=== PATIENT | male | born 1940 | race Caucasian/White ===

== ENCOUNTER 2017-11-03 11:51 | Day surgery (SDC) | payer MEDICARE ==
[~2017-11-03] VITALS: Ht 177.8 cm; Wt 102.5 kg
[~2017-11-03 11:51] MED LIST: (None)20 M1 PO; ALBU90OI INH; AMLO10 PO; ATOR10 PO; AZIT250 PO; Actigall300 MG PO; Aspir 8181 MG PO; BUDE6HFA INH; CENTRUM SILVER1 EAC2 PO; CETI5 PO; CLON.1 PO; COLCHICINE0.6 MG PO; ELIQUIS5 MG PO; ENAL20 PO; ERGO400 PO; FINA5 PO; Flomax0.4 MG PO; HYDCHL25; HYDCHL25 PO; HYDR1TAB94 PO; Keflex500 MG PO; LOSA25 PO; LOVA40 PO; METO25ER PO; OXYACE5T PO; Omega 3 1,0001 EACH PO; Omeprazole20 M1 PO; PRAMIPEXOLE0.125 MG PO; PRED20 PO; Percocet 5-3251 EACH PO; ZOLP10 PO; ZYRTEC10 M1 PO
[2017-11-04 05:18] LABS: BASOPHILS ABSOLUTE AUTO 0.01 K/mm3 (0.00-0.23); BASOPHILS PERCENT AUTO 0 % (0-2); EOSINOPHILS PERCENT AUTO 0 % (0-6); Hematocrit 29.3 % (37.0-53.0); Hemoglobin 9.4 g/dL (13.5-17.5); IMMATURE GRAN ABSOLUTE AUTO 0.06 K/mm3 (0.00-0.10); IMMATURE GRAN PERCENT AUTO 1 % (0-1); LYMPHOCYTES ABSOLUTE AUTO 0.45 K/mm3 (0.84-5.20); LYMPHOCYTES PERCENT AUTO 4 % (21-46); MONOCYTES ABSOLUTE AUTO 0.18 K/mm3 (0.16-1.47); MONOCYTES PERCENT AUTO 2 % (4-13); Mean Corpuscular HGB 29.7 pg (26.0-34.0); Mean Corpuscular HGB Conc 32.1 g/dL (31.5-36.5); Mean Corpuscular Volume 92 fL (80-100); Mean Platelet Volume 9.8 fL (9.1-12.4); NEUTROPHILS ABSOLUTE AUTO 10.47 K/mm3 (1.96-9.15); NEUTROPHILS PERCENT AUTO 94 % (41-73); Platelet Count 217 K/mm3 (150-400); RDW Coefficient Variation 15.2 % (11.7-14.2); RDW Standard Deviation 51.7 fL (35.1-46.3); Red Blood Cell Count 3.17 M/mm3 (4.30-5.90); White Blood Cell Count 11.17 K/mm3 (4.00-11.30)
[2017-11-04 05:37] LABS: Bun/Creatinine Ratio 18.1 (12.0-20.0); Calcium, Blood 8.2 mg/dL (8.5-10.1); Creatinine, Blood 2.27 mg/dL (0.60-1.20); Potassium, Blood 5.5 mmol/L (3.5-5.5)
[2017-11-04] MEDS ORDERED: Percocet 5-3251 EACH PO (16:39)
== END 2017-11-04 17:00 | disposition home or self-care (01) ==
LOC: SURS 11:51 → PRE IP 11:51 → ORSCMMR 11:51 → SURS 11:51 → PRE IP 13:30 → EDSTATUS 13:30 → SURS 18:01 → ORSCMMR 11-04 17:00 → SURS 11-04 17:00
PROVIDERS: Orthopaedic Surgery
PROC: 0SRC0JA Replacement of Right Knee Joint with Synthetic Substitute, Uncemented, Open Approach (ICD-10-PCS; principal; 2017-11-03 13:30)
DX: M17.11 Unilateral primary osteoarthritis, right knee (principal); N18.2 Chronic kidney disease, stage 2 (mild); I10 Essential (primary) hypertension; I48.0 Paroxysmal atrial fibrillation; E78.5 Hyperlipidemia, unspecified; G47.33 Obstructive sleep apnea (adult) (pediatric); Z87.891 Personal history of nicotine dependence; Z79.899 Other long term (current) drug therapy
CPT/HCPCS: 36415; 73560-RT; 80048; 85025; 86850; 86900; 86901; 88300; 94762; 97110; 97116; 97161; C1776; G8978; G8979; G8980; J0171; J0690; J0735; J1170; J1885; J2250; J2270; J2795; J3010; J7120

== ENCOUNTER 2018-04-06 14:28 | Emergency (ER) | payer MEDICARE ==
[~2018-04-06] VITALS: Ht 177.8 cm; Wt 99.8 kg
[2018-04-06] MEDS ORDERED: Polytrim Eye Dr10 ML LEFTEYE (16:13)
== END 2018-04-06 16:15 | disposition home or self-care (01) ==
LOC: ER 14:28
DX: H00.024 Hordeolum internum left upper eyelid (principal); Z88.8 Allergy status to other drugs, medicaments and biological substances; Z79.899 Other long term (current) drug therapy; I10 Essential (primary) hypertension; E78.00 Pure hypercholesterolemia, unspecified; Z87.891 Personal history of nicotine dependence
CPT/HCPCS: 99282

== ENCOUNTER 2018-05-25 10:46 | Day surgery (SDC) | payer MEDICARE ==
[~2018-05-25] VITALS: Ht 177.8 cm; Wt 100.0 kg
[~2018-05-25 10:46] MED LIST changes: +Polytrim Eye Dr10 ML LEFTEYE
== END 2018-05-25 12:31 | disposition home or self-care (01) ==
LOC: ORSCSDS 10:46
PROVIDERS: Internal Medicine Gastroenterology
PROC: 0DJ08ZZ Inspection of Upper Intestinal Tract, Via Natural or Artificial Opening Endoscopic (ICD-10-PCS; principal; 2018-05-25 12:00)
DX: K22.70 Barrett's esophagus without dysplasia (principal); K44.9 Diaphragmatic hernia without obstruction or gangrene; K75.81 Nonalcoholic steatohepatitis (NASH); G47.33 Obstructive sleep apnea (adult) (pediatric); N18.2 Chronic kidney disease, stage 2 (mild); Z87.891 Personal history of nicotine dependence
CPT/HCPCS: J7120

== ENCOUNTER 2018-11-23 07:23 | Day surgery (SDC) | payer MEDICARE ==
--- NOTE | 2018-11-23 09:58 | NUR ---
PT LAYING ON RT SIDE. BANDAID CDI ON RT SIDE. NO FAMILY WITH PT. VSS. PT WILL GO FOR SECOND US OF LIVER AT 1000. PT IS COMFORTABLE WITH NO COMPLAINTS.
--- NOTE | 2018-11-23 10:14 | NUR ---
PT REQUESTED CHESSE, CRACKERS AND PEPSI. SNACK GIVEN TO PT
--- NOTE | 2018-11-23 10:50 | NUR ---
REPORT GIVEN TO KRISHNA OSEGUERA. SHE WILL ASSUME CARE OF PT AT THIS TIME.
--- NOTE | 2018-11-23 11:34 | NUR ---
PT REPORT FROM MONALISA OSEGUERA. PT US OF LIVER COMPLETED AT BEDSIDE. PATIENT TOLERATED WELL. SHAWN PEREYRA FROM RADIOLGY GAVE VERBAL ORDERS TO SEND PATIENT HOME. DISCHARGE ORDERS COMPLETED. PT VERBALIZES UNDERSTANDING OF WHEN TO RESTART ELIQUIS. VS REMAINED STABLE AND THEIR WHERE NO COMPLAINTS OF PAIN THROUGHOUT RECOVERY. ALL BELONINGS RETURNED TO PATIENT.
== END 2018-11-23 22:38 | disposition home or self-care (01) ==
LOC: US 07:23
DX: K74.69 Other cirrhosis of liver (principal); R76.0 Raised antibody titer; N28.1 Cyst of kidney, acquired; Z90.49 Acquired absence of other specified parts of digestive tract; I25.10 Atherosclerotic heart disease of native coronary artery without angina pectoris; I48.0 Paroxysmal atrial fibrillation; Z79.01 Long term (current) use of anticoagulants; Z79.899 Other long term (current) drug therapy; N18.2 Chronic kidney disease, stage 2 (mild); G47.30 Sleep apnea, unspecified; Z87.891 Personal history of nicotine dependence
CPT/HCPCS: 47000; 76705; 76942; 88307; 88313

== ENCOUNTER → 2019-06-05 | Outpatient (CLI) | payer MEDICARE ==
[2019-06-05 12:28] LABS: BASOPHILS ABSOLUTE AUTO 0.05 K/mm3 (0.00-0.23); BASOPHILS PERCENT AUTO 1 % (0-2); EOSINOPHILS ABSOLUTE AUTO 0.21 K/mm3 (0.00-0.68); EOSINOPHILS PERCENT AUTO 2 % (0-6); Hematocrit 35.4 % (37.0-53.0); Hemoglobin 11.8 g/dL (13.5-17.5); IMMATURE GRAN ABSOLUTE AUTO 0.08 K/mm3 (0.00-0.10); IMMATURE GRAN PERCENT AUTO 1 % (0-1); LYMPHOCYTES ABSOLUTE AUTO 1.05 K/mm3 (0.84-5.20); LYMPHOCYTES PERCENT AUTO 10 % (21-46); MONOCYTES ABSOLUTE AUTO 0.81 K/mm3 (0.16-1.47); MONOCYTES PERCENT AUTO 8 % (4-13); Mean Corpuscular HGB 30.1 pg (26.0-34.0); Mean Corpuscular HGB Conc 33.3 g/dL (31.5-36.5); Mean Corpuscular Volume 90 fL (80-100); Mean Platelet Volume 9.3 fL (9.1-12.4); NEUTROPHILS ABSOLUTE AUTO 8.14 K/mm3 (1.96-9.15); NEUTROPHILS PERCENT AUTO 79 % (41-73); Platelet Count 297 K/mm3 (150-400); RDW Coefficient Variation 14.5 % (11.7-14.2); RDW Standard Deviation 47.4 fL (35.1-46.3); Red Blood Cell Count 3.92 M/mm3 (4.30-5.90); White Blood Cell Count 10.34 K/mm3 (4.00-11.30)
[2019-06-05 12:48] LABS: Alanine Aminotransfer (ALT/SGP 35 U/L (12-78); Albumin, Blood 3.6 g/dL (3.4-5.0); Albumin/Globulin Ratio 0.9 (0.8-1.8); Alk Phos 129 U/L (40-126); Anion Gap 12 mmol/L (6-16); Aspartate Aminotrans (AST/SGOT 30 U/L (12-37); Bilirubin, Total 0.4 mg/dL (0.1-1.0); Blood Urea Nitrogen 35 mg/dL (8-24); Bun/Creatinine Ratio 19.1 (12.0-20.0); CO2, Blood 24 mmol/L (21-32); Calcium, Blood 9.2 mg/dL (8.5-10.1); Chloride, Blood 95 mmol/L (98-108); Creatinine, Blood 1.83 mg/dL (0.60-1.20); Globulin, Blood 4.1 g/dL (2.2-4.0); Glomerular Filtration Rate 36 (60-); Glucose, Blood 108 mg/dL (70-99); Potassium, Blood 4.1 mmol/L (3.5-5.5); Sodium, Blood 131 mmol/L (136-145); Thyroid Stimulating Hormone 2.313 uIU/mL (0.360-4.800); Total Protein, Blood 7.7 g/dL (6.4-8.2)
[2019-06-05 12:49] LABS: Troponin I <0.017 ng/mL (0.000-0.040)
== END | disposition home or self-care (01) ==
LOC: LAB EV 12:24 → LAB SHORT 12:24
PROVIDERS: General Practice
DX: R22.43 Localized swelling, mass and lump, lower limb, bilateral (principal); R53.81 Other malaise
CPT/HCPCS: 80053; 83880; 84443; 84484; 85025; 85379

== ENCOUNTER → 2019-07-28 | Outpatient (CLI) | payer MEDICARE | END | disposition home or self-care (01) | LOC: PLD 08:05 → LAB SHORT 08:05 | DX: B35.1 Tinea unguium (principal) | CPT/HCPCS: 88305; 88312 ==

== ENCOUNTER 2019-08-30 13:16 | Emergency (ER) | payer MEDICARE ==
[~2019-08-30] VITALS: Ht 177.8 cm; Wt 99.8 kg
[2019-08-30 14:00] LABS: Source, Urine Clean Catch
[2019-08-30 14:15] LABS: Bilirubin, Urine Neg (Neg); Blood, Urine Neg (Neg); Glucose Qualitative, Urine Neg (Neg); Ketones, Urine Neg (Neg); Leukocyte Esterase, Urine Neg (Neg); Nitrite, Urine Neg (Neg); Protein, Urine Neg (Neg); Urobilinogen, Urine NORM (Normal)
[2019-08-30 15:03] LABS: Appearance, Urine Clear (Clear); Color, Urine Yellow (P-Yellow)
[2019-08-30] MEDS ORDERED: Roxicodone5 MG PO (15:48)
[2019-08-30] MEDS ORDERED: METPRE4DP PO (15:48)
== END 2019-08-30 16:05 | disposition home or self-care (01) ==
LOC: ER 13:16
PROVIDERS: Physician Assistant
DX: S39.011A Strain of muscle, fascia and tendon of abdomen, initial encounter (principal); I10 Essential (primary) hypertension; E78.00 Pure hypercholesterolemia, unspecified; Z87.891 Personal history of nicotine dependence; Z88.8 Allergy status to other drugs, medicaments and biological substances; Z79.899 Other long term (current) drug therapy; Z79.01 Long term (current) use of anticoagulants; X50.0XXA Overexertion from strenuous movement or load, initial encounter
CPT/HCPCS: 76857; 81003; 99284-25

== ENCOUNTER 2019-09-05 10:34 | Emergency (ER) | payer MEDICARE ==
[~2019-09-05] VITALS: Ht 177.8 cm; Wt 99.8 kg
[~2019-09-05 10:34] MED LIST changes: +METPRE4DP PO; +Roxicodone5 MG PO
[2019-09-05] MEDS ORDERED: METPRE4DP PO (11:16)
== END 2019-09-05 11:25 | disposition home or self-care (01) ==
LOC: ER 10:34
DX: S39.011A Strain of muscle, fascia and tendon of abdomen, initial encounter (principal); X58.XXXA Exposure to other specified factors, initial encounter; Z88.8 Allergy status to other drugs, medicaments and biological substances; Z79.899 Other long term (current) drug therapy; Z79.52 Long term (current) use of systemic steroids; I12.9 Hypertensive chronic kidney disease with stage 1 through stage 4 chronic kidney disease, or unspecified chronic kidney disease; N18.9 Chronic kidney disease, unspecified; K21.9 Gastro-esophageal reflux disease without esophagitis
CPT/HCPCS: 99283

== ENCOUNTER 2019-12-20 02:00 | Inpatient (IN) | payer MEDICARE ==
[~2019-12-20] VITALS: Ht 177.8 cm; Wt 105.6 kg
[2019-12-20 04:49] LABS: Alanine Aminotransfer (ALT/SGP 38 U/L (12-78); Albumin, Blood 3.6 g/dL (3.4-5.0); Alk Phos 127 U/L (50-136); Anion Gap 7 mmol/L (6-16); Aspartate Aminotrans (AST/SGOT 35 U/L (12-37); Bilirubin, Total 0.2 mg/dL (0.1-1.0); Blood Urea Nitrogen 34 mg/dL (8-24); Bun/Creatinine Ratio 19.8 (12.0-20.0); CO2, Blood 25 mmol/L (21-32); Calcium, Blood 8.9 mg/dL (8.5-10.1); Chloride, Blood 103 mmol/L (98-108); Creatinine, Blood 1.72 mg/dL (0.60-1.20); Globulin, Blood 3.6 g/dL (2.2-4.0); Glomerular Filtration Rate 39 (60-); Glucose, Blood 111 mg/dL (70-99); Potassium, Blood 4.5 mmol/L (3.5-5.5); Sodium, Blood 135 mmol/L (136-145); Total Protein, Blood 7.2 g/dL (6.4-8.2); Troponin I <0.015 ng/mL (0.000-0.040)
--- NOTE | 2019-12-20 04:53 | NUR ---
ADMIT NOTE ADMIT 79 YEAR OLD MALE TO ICU 19 PCU STATUS PER HOSPITALIST DR EMERY PER [facility] VIA ER. MONITOR INTACT SHOWING SINUS RHYTHM HEART RATE 80'S DENIES DISCOMFORT. LUNG SOUNDS COARSE DECRESED WITH OCC NONPRODUCTIVE COUGH. SPO2 ON BIPAP 12/6 WITH FIO2 AT 30%. RATE 18-26. ABDOMEN SOFT WITH BOWEL SOUNDS FOUR QUADS. VOIDS ALTAGRACIA URINE PER URINAL . OCONTINUE TO MONITOR AND REPORT CHANGE IN PATIENT CONDITION.
[2019-12-20 05:12] LABS: BASOPHILS ABSOLUTE AUTO 0.07 K/mm3 (0.00-0.23); BASOPHILS PERCENT AUTO 1 % (0-2); EOSINOPHILS ABSOLUTE AUTO 0.58 K/mm3 (0.00-0.68); EOSINOPHILS PERCENT AUTO 7 % (0-6); Hematocrit 36.3 % (37.0-53.0); Hemoglobin 12.1 g/dL (13.5-17.5); IMMATURE GRAN ABSOLUTE AUTO 0.07 K/mm3 (0.00-0.10); IMMATURE GRAN PERCENT AUTO 1 % (0-1); LYMPHOCYTES ABSOLUTE AUTO 1.08 K/mm3 (0.84-5.20); LYMPHOCYTES PERCENT AUTO 13 % (21-46); MONOCYTES ABSOLUTE AUTO 0.87 K/mm3 (0.16-1.47); MONOCYTES PERCENT AUTO 10 % (4-13); Mean Corpuscular HGB 30.7 pg (26.0-34.0); Mean Corpuscular HGB Conc 33.3 g/dL (31.5-36.5); Mean Corpuscular Volume 92 fL (80-100); Mean Platelet Volume 9.4 fL (9.1-12.4); NEUTROPHILS ABSOLUTE AUTO 5.86 K/mm3 (1.96-9.15); NEUTROPHILS PERCENT AUTO 69 % (41-73); Platelet Count 245 K/mm3 (150-400); RDW Standard Deviation 51.5 fL (35.1-46.3); Red Blood Cell Count 3.94 M/mm3 (4.30-5.90); White Blood Cell Count 8.53 K/mm3 (4.00-11.30)
--- NOTE | 2019-12-20 06:30 | NUR ---
RESTS QUIETLY WHEN UNDISTURBED. MONITOR INTACT SHOWING SINUS RHYTHM. HEART RATE 80'S DENIES DISCOMFORT BIPAP INTACT SETTINGS 12/6 FIO2 305 RATE 15-26 SPO2 95-98% LUNG SOUNDS COARSE UPPER LOBES WITH DECREASED SOUNDS IN THE BASES. ABDOMEN SOFT WITH BOWEL SOUNDS FOUR QUADS. VOIDS ALTAGRACIA URINE PER URINAL. CONTINUE TO MONITOR AND REPORT CHANGE IN PATIENT CONDITION. BILATERAL LOWER EXTREMITIY EDEMS 2+ AMPUTATED R 4TH TOE
[2019-12-20 06:43] LABS: Adenovirus Not Detected (NOT DETECT); Bordetella pertussis Not Detected (NOT DETECT); Chlamydophila pneumoniae Not Detected (NOT DETECT); Coronavirus 229E Not Detected (NOT DETECT); Coronavirus HKU1 Not Detected (NOT DETECT); Coronavirus NL63 Not Detected (NOT DETECT); Coronavirus OC43 Not Detected (NOT DETECT); Human Metapneumovirus Not Detected (NOT DETECT); Human Rhinovirus/Enterovirus Not Detected (NOT DETECT); Influenza A/2009-H1 Not Detected (NOT DETECT); Influenza A/H1 Not Detected (NOT DETECT); Influenza A/H3 Not Detected (NOT DETECT); Influenza B Not Detected (NOT DETECT); Mycoplasma pneumoniae Not Detected (NOT DETECT); Parainfluenza Virus 1 Not Detected (NOT DETECT); Parainfluenza Virus 2 Not Detected (NOT DETECT); Parainfluenza Virus 3 Not Detected (NOT DETECT); Parainfluenza Virus 4 Not Detected (NOT DETECT); Respiratory Syncytial Virus Not Detected (NOT DETECT)
--- NOTE | 2019-12-20 07:30 | NUR ---
PT RESTING IN BED, BIPAP IN PLACE 09/16 WITH 30% FIO2. ROUSES EASILY, SATS MID TO HIGH 90S ON THIS. DENIES NEEDS OR CONCERNS AT THIS TIME.
--- NOTE | 2019-12-20 09:00 | NUR ---
DISCUSSED ORDERED AND HOME MEDS WITH PT. PT DECLINED LISINOPRIL AND WANTED TO BRING ENALAPRIL IN. WROTE OUT LIST OF MEDS TO CALL TO BRING IN. ON 2L NE SATTING MID 90S AT THIS TIME. AWAITING MD TO DETERMINE DIET RECOMMENDATIONS. NO FURTHER NEEDS OR CONCERNS AT THSI TIME.
--- NOTE | 2019-12-20 11:51 | NUR ---
NOTED ON MONITOR THAT PT'S RESPIRATIONS WERE IN 70S. HEADED TO ROOM TO FIND CALL LIGHT ON. ENTERED ROOM AND PT WAS GASPING AND STATED HE FELT HE COULDN'T BREATH. BIPAP PLACED AT 12/6 WITH 45% FIO2 TO START. PT STATES NOTHING LED UP TO DYSPNEIC EPISODE, JUST SUDDEN SOB. IMPROVING AFTER BIPAP REPLACED WITH LUNG SOUNDS CLEAR AT THIS TIME. FIO2 BACK DOWN TO 30%. RR IN 20S AT THIS TIME.
--- NOTE | 2019-12-20 12:30 | NUR ---
TRANSFERRED CARE: REPORT GIVEN TO IGNACIA OSEGUERA. PT CURRENTLY ON BIPAP 09/16 WITH 30% FIO2. DENIES NEEDS OR CONCERNS AT THIS TIME.
--- NOTE | 2019-12-20 13:30 | NUR ---
Assumed care after getting report from Estela OSEGUERA. Patient takenb off BIPAP and set up for lunch and polaced on 2L O2 via NC and sast low 90s's with RR <20. Patient denies any current needs. VSS See EMR.
--- NOTE | 2019-12-20 18:00 | NUR ---
Patient has been off and on BIPAP by request. When his RR gets in the upper 20's he will call and request placed back on. BIPAP / at 30%. He tolerated 100% of dinner. He got up to bathroom and had med size formed BM. His brought home meds in and had pharmacy set up for scan. He has a different way that he takes his home meds and will have NOC shift to clarify with hospitalist. He is currentlu on 2L O2 via NC and is calm.
--- NOTE | 2019-12-20 19:15 | NUR ---
ASSUME CARE: BEDSIDE REPORT RECIEVED FROM IGNACIA OFF GOING RN. MONITOR INTACT SHOWING A FIB HEART RATE 90'S-100'S . LUNG SOUNDS COARSE UPPER LOBES WITH DECREASED SOUNDS IN THE BASES. RESPIRATIONS REGULAR AND EASY AT REST BECOMES TACHY WITH EXERTION. ALTERNATES BETWEEN BIPAP 12/6 FIO2 305 AND O2 PER NASAL CANNULA NEEDED. SPO2 94-98% ABDOMEN SOFT WITH BOWEL SOUNDS FOUR QUADS. VOIDS AMGER URINE. GAIT STEADY TO TOILET .. MINIMAL ASSIST CONTINUE TO MONITOR AND REPORT CHANGE IN PATIENT CONDITION VERBALIZES CONCERNS RE ORAL HOME MEDS AND DOSAGES ORDERED VS HIS HOME REGIUME. HOSPITALIST NOTIFIED ORDERS NOTED
[2019-12-21 03:39] LABS: BASOPHILS ABSOLUTE AUTO 0.01 K/mm3 (0.00-0.23); BASOPHILS PERCENT AUTO 0 % (0-2); EOSINOPHILS PERCENT AUTO 0 % (0-6); Hematocrit 34.4 % (37.0-53.0); Hemoglobin 11.6 g/dL (13.5-17.5); IMMATURE GRAN ABSOLUTE AUTO 0.06 K/mm3 (0.00-0.10); IMMATURE GRAN PERCENT AUTO 1 % (0-1); LYMPHOCYTES ABSOLUTE AUTO 0.59 K/mm3 (0.84-5.20); LYMPHOCYTES PERCENT AUTO 5 % (21-46); MONOCYTES ABSOLUTE AUTO 0.25 K/mm3 (0.16-1.47); MONOCYTES PERCENT AUTO 2 % (4-13); Mean Corpuscular HGB 30.7 pg (26.0-34.0); Mean Corpuscular HGB Conc 33.7 g/dL (31.5-36.5); Mean Corpuscular Volume 91 fL (80-100); Mean Platelet Volume 8.8 fL (9.1-12.4); NEUTROPHILS PERCENT AUTO 92 % (41-73); Platelet Count 221 K/mm3 (150-400); RDW Standard Deviation 50.2 fL (35.1-46.3); Red Blood Cell Count 3.78 M/mm3 (4.30-5.90); White Blood Cell Count 11.61 K/mm3 (4.00-11.30)
[2019-12-21 03:58] LABS: Bun/Creatinine Ratio 23.9 (12.0-20.0); Calcium, Blood 9.4 mg/dL (8.5-10.1); Creatinine, Blood 1.38 mg/dL (0.60-1.20); Potassium, Blood 4.3 mmol/L (3.5-5.5)
--- NOTE | 2019-12-21 08:18 | NUR ---
PROVIDER COMMUNICATION SPOKE WITH DR. LYMAN REGARDING CODE STATUS AND PT'S HOME MED, ALLOPURINOL, PER REQUESTED BY PATIENT. NEW ORDERS PLACED.
--- NOTE | 2019-12-21 08:19 | NUR ---
CARE ASSUMED REPORT RECEIVED, CARE ASSUMED AT 0700 FROM OUMAR RHODES. PT RESTING QUIETLY ON BIPAP, ALERT AND ORIENTED. REQUESTS TO TAKE BIPAP OFF, PLACED ON NASAL CANNULA. RR ELEVATED, PT REPORTS FEELING SHORT OF BREATH, BUT NO WORSE THAN THE PREVIOUS TWO WEEKS. PT TO SIDE OF BED FOR BREAKFAST AND TOLERATED WELL. PLAN FOR VQ STUDY TODAY, VERIFIED WITH RADIOLOGY THAT PT OK TO EAT PRIOR TO STUDY.
[2019-12-21] MEDS ORDERED: ENAL20 PO (09:22)
--- NOTE | 2019-12-21 09:35 | NUR ---
HOME MEDS WHILE EDUCATING PATIENT REGARDING MEDICATION ADMINISTRATION, IT WAS DISCOVERED THAT MEDICATIONS ARE DIFFERENT THAN HOME REGIME. ATTEMPTED TO REDO MED REC PRIOR TO CALLING PHYSICIAN AND PT NOT 100% SURE ON ALL OF HIS MEDICATIONS. PT CALLED WHO IS GOING TO PRINT HOME MED LIST FROM [employer] AND BRING IN FOR REVIEW.
--- NOTE | 2019-12-21 09:37 | NUR ---
CHEST PAIN PT NOTED TO HAVE FURROWED BROW AND BE MORE QUIET THAN EARLIER. PROMPTED PT REGARDING PAIN AND HE SAYS SINCE GETTING BACK TO BED AFTER BREAKFAST, "THE UPPER PART OF MY LUNGS ARE HURTING." PT POINTS TO STERNAL AREA. DESCRIBES PRESSURE/TIGHTNESS. REPORTS HE HAS HAD IT IN THE PAST, BUT INFREQUENTLY. PT PLACED BACK ON BIPAP. SPOKE WITH DR. WHITT. NEW ORDER FOR ATIVAN, EKG AND TROPONIN NOW.
--- NOTE | 2019-12-21 10:11 | NUR ---
CHEST PAIN VITALS STABLE. PT REPORTS CHEST PAIN WENT FROM 8/10 TO 5/10 AFTER GOING BACK ON BIPAP. REPORTS IT IMPROVING TO 1/10 AFTER ATIVAN WAS GIVEN. EKG COMPLETE. PENDING TROPONIN RESULTS.
--- NOTE | 2019-12-21 11:00 | NUR ---
MD ASSESSMENT DR. LYMAN TO BEDSIDE FOR ASSESSMENT. SEE PROVIDER NOTE.
--- NOTE | 2019-12-21 12:27 | NUR ---
PE STUDY PT OFF UNIT FOR PE RULE OUT STUDY. PT CONNECTED TO TELE BOX, CONFIRMED BY BRITTNEY MOLINAU SUPERVISOR [employer].
[2019-12-21] MEDS ORDERED: Allopurinol100 MG PO (13:24)
[2019-12-21] MEDS ORDERED: CYCL10 PO (13:25)
[2019-12-21] MEDS ORDERED: OMEP20ER PO (13:27)
[2019-12-21] MEDS ORDERED: LOVA40 PO (13:27)
--- NOTE | 2019-12-21 13:39 | NUR ---
MED REC MED REC UPDATED PER PATIENT'S LIST FROM HOME AND PT'S MEMORY. HE TAKES A FEW OF THE MEDICATIONS DIFFERENT THAN PRESCRIBED BUT PT SAYS HE HAS DISCUSSED WITH MD AND THE LIST JUST HASN'T BEEN UPDATED. SEE MED REC. DR. WHITT UPDATED AND PLANS TO PUT IN ORDERS WHEN SHE IS ABLE TO. FOR NOW, ORDER FOR URSODIOL UPDATED PER HOME REGIME.
--- NOTE | 2019-12-21 13:51 | NUR ---
TRANSFER NOTIFIED BY CHANDRA REID RN THAT PT TO BE TRANSFERRED TO PCU 2. PT UPDATED AND AGREEABLE. REPORT GIVEN TO OUMAR YARBROUGH IN PCU.
--- NOTE | 2019-12-21 14:26 | NUR ---
TRANSFER PT TRANSFERED TO PCU 2. VITALS STABLE. STAND AND TRANSFER FROM BED TO WHEELCHAIR BACK TO PCU BED. PT CONTINUES TO BE SHAKEY, BUT STEADY ON FEET. MANAGER RECRUITING VERIFIED BY JESSE U SHINGLE SHEARING MACHINE OPERATOR. PT PROVIDED WITH PHONE AND CALL LIGHT AND DECLINES FURTHER NEEDS. OUMAR YARBROUGH TO ASSUME CARE UPDATED.
--- NOTE | 2019-12-21 18:58 | NUR ---
SHIFT NOTEPT WAS TRANSFER FROM ICU WITH COPF EXACERBATION. PT A/O X3, PT DENIES SOB OR CP. PT EATING SNACKS TAT FAMILY HAS BROUGHT IN AT THE BEDSIDE. DENIES FURTHER NEEDS, USES CALL LIGHT APPROPRIATELY
--- NOTE | 2019-12-22 01:24 | NUR ---
VITALS FROM 1957 HRS I INCORRECTLY ENTERED THE RESPIRATORY RATE 14 BREATHS PER MINUTE. THE SYSTEM WILL NOT ALLOW ME TO CORRECT/EDIT THIS NUMBER. THE CORRECT BREATHS PER MINUTE AT 1958 HRS IS 21 BPM.
[2019-12-22 03:44] LABS: BASOPHILS ABSOLUTE AUTO 0.02 K/mm3 (0.00-0.23); BASOPHILS PERCENT AUTO 0 % (0-2); EOSINOPHILS PERCENT AUTO 0 % (0-6); Hematocrit 32.2 % (37.0-53.0); Hemoglobin 10.9 g/dL (13.5-17.5); IMMATURE GRAN ABSOLUTE AUTO 0.12 K/mm3 (0.00-0.10); IMMATURE GRAN PERCENT AUTO 1 % (0-1); LYMPHOCYTES ABSOLUTE AUTO 0.38 K/mm3 (0.84-5.20); LYMPHOCYTES PERCENT AUTO 3 % (21-46); MONOCYTES ABSOLUTE AUTO 0.53 K/mm3 (0.16-1.47); MONOCYTES PERCENT AUTO 4 % (4-13); Mean Corpuscular HGB 30.6 pg (26.0-34.0); Mean Corpuscular HGB Conc 33.9 g/dL (31.5-36.5); Mean Corpuscular Volume 90 fL (80-100); Mean Platelet Volume 9.2 fL (9.1-12.4); NEUTROPHILS ABSOLUTE AUTO 13.34 K/mm3 (1.96-9.15); NEUTROPHILS PERCENT AUTO 93 % (41-73); Platelet Count 226 K/mm3 (150-400); RDW Coefficient Variation 15.1 % (11.7-14.2); RDW Standard Deviation 50.3 fL (35.1-46.3); Red Blood Cell Count 3.56 M/mm3 (4.30-5.90); White Blood Cell Count 14.39 K/mm3 (4.00-11.30)
[2019-12-22 04:07] LABS: Calcium, Blood 8.9 mg/dL (8.5-10.1); Creatinine, Blood 1.55 mg/dL (0.60-1.20); Potassium, Blood 4.2 mmol/L (3.5-5.5)
--- NOTE | 2019-12-22 05:04 | NUR ---
SHIFT SUMMARY ADMITTED FOR COPD EXACERBATION. FULL CODE. USING A BIPAP AT NIGHT. REGULAR DIET, RA DURING DAY, HE HAS A BIPAP AT HOME. TELEMETRY SHOWS HIM TACHY 104-109 BPM. HE WAS TRANSFERED TO PCU FROM ICU YESTERDAY. HE DOES DESATURATE AT NIGHT WITHOUT THE BIPAP. HE IS HOPEFUL FOR DC TODAY. I NOTED DOWNTRENDING GFR. BUN IS TRENDING UP, IS CREATININE. HX: COPD, HTN, GERD, CKD, HYPERCHOLESTEROLEMIA,
--- NOTE | 2019-12-22 16:39 | NUR ---
PT TRANSFERED TO ROOM 308. REPORT CALLED OUMAR LOPEZ PRIOR TO MOVING ROOMS. PT AOX4 AND COOPERATIVE OF CARE. PT DID HAVE COUGH TODAY AND DR WHITT ADDED COUGH MEDICATION TO EMAR. PT IS AMBULATING WELL ON HIS OWN AND CALLS APPROPRIATELY. NO DISTRESS NOTED AT THIS TIME COUGH TREATED X 1 PER EMAR.
--- NOTE | 2019-12-22 16:45 | NUR ---
PT ARRIVED TO ROOM 308 FROM U 2, ORIENTED TO ROOM AND CALL SYSTEM. CALL TREJO IN REACH. PT DENIES WANTS/NEEDS AT THIS TIME. CALL TREJO IN REACH, WILL CONTINUE TO MONITOR
--- NOTE | 2019-12-22 18:39 | NUR ---
PT DENIES WANTS/NEEDS, PT ON RA DURING THE DAY AND BIPAP AT NIGHT. NO ACUTE CHANGES NOTED THIS SHIFT, WILL CONTINUE TO MONITOR AND REPORT TO ONCOMING RN
--- NOTE | 2019-12-22 22:07 | NUR ---
PATIENT RESTING IN BED WATCHING TV. ON ROOM AIR. REPORTS HE WILL PUT CPAP ON FOR SLEEP. CALL LIGHT IN REACH.
--- NOTE | 2019-12-23 03:03 | NUR ---
SHIFT SUMMARY PATIENT HAD NO ACUTE CHANGES OBSERVED. AXOX 4 AND SBA TO BR. ON ROOM AIR AND USES CPAP AT NIGHT. VSS/AFEBRILE. DENIES PAIN AND N/V. USES URINAL AT BEDSIDE. IV SOLU-MEDROL PER EMAR. RT IN FOR BREATHING TX. TESSALON 200 MG GIVEN FOR COUGH. PATIENT ABLE TO SLEEP. CALL LIGHT IN REACH. BED IN LOWEST POSITION. WILL CONTINUE TO MONITOR UNTIL DAY SHIFT NURSE ASSUMES CARE.
[2019-12-23 11:40] LABS: BASOPHILS ABSOLUTE AUTO 0.01 K/mm3 (0.00-0.23); BASOPHILS PERCENT AUTO 0 % (0-2); EOSINOPHILS PERCENT AUTO 0 % (0-6); Hematocrit 36.4 % (37.0-53.0); Hemoglobin 12.4 g/dL (13.5-17.5); IMMATURE GRAN ABSOLUTE AUTO 0.13 K/mm3 (0.00-0.10); IMMATURE GRAN PERCENT AUTO 1 % (0-1); LYMPHOCYTES ABSOLUTE AUTO 0.41 K/mm3 (0.84-5.20); LYMPHOCYTES PERCENT AUTO 3 % (21-46); MONOCYTES ABSOLUTE AUTO 0.58 K/mm3 (0.16-1.47); MONOCYTES PERCENT AUTO 5 % (4-13); Mean Corpuscular HGB 30.8 pg (26.0-34.0); Mean Corpuscular HGB Conc 34.1 g/dL (31.5-36.5); Mean Corpuscular Volume 91 fL (80-100); Mean Platelet Volume 9.1 fL (9.1-12.4); NEUTROPHILS ABSOLUTE AUTO 10.92 K/mm3 (1.96-9.15); NEUTROPHILS PERCENT AUTO 91 % (41-73); Platelet Count 262 K/mm3 (150-400); RDW Coefficient Variation 15.4 % (11.7-14.2); RDW Standard Deviation 50.7 fL (35.1-46.3); Red Blood Cell Count 4.02 M/mm3 (4.30-5.90); White Blood Cell Count 12.05 K/mm3 (4.00-11.30)
[2019-12-23 11:55] LABS: Albumin, Blood 3.2 g/dL (3.4-5.0); Anion Gap 8 mmol/L (6-16); Blood Urea Nitrogen 57 mg/dL (8-24); Bun/Creatinine Ratio 37.7 (12.0-20.0); CO2, Blood 25 mmol/L (21-32); Calcium, Blood 8.6 mg/dL (8.5-10.1); Chloride, Blood 96 mmol/L (98-108); Creatinine, Blood 1.51 mg/dL (0.60-1.20); Glomerular Filtration Rate 48 (60-); Glucose, Blood 152 mg/dL (70-99); Phosphorus, Blood 4.1 mg/dL (2.5-4.9); Potassium, Blood 4.2 mmol/L (3.5-5.5); Sodium, Blood 129 mmol/L (136-145)
--- NOTE | 2019-12-23 18:45 | NUR ---
SHIFT SUMMARY- PT ALERT AND ORIENTED. PT MEDICATED FOR COUGH T/O THE SHIFT TYLENOL 3 WORKED BETTER THAN ANY OF THE OTHER MEDICATIONS FOR COUGH. PT STATED HE WOULD LIKE THE NEXT DOSE WHEN IT IS AVAILABLE (2129) WILL PASS ON TO NIGHT RN IN BEDSIDE REPORT. PT SEEMS TO BE BREATHING MORE EASILY THIS EVENING. NO ACUTE CHANGES T/O THE SHIFT.
[2019-12-24 05:51] LABS: BASOPHILS ABSOLUTE AUTO 0.01 K/mm3 (0.00-0.23); BASOPHILS PERCENT AUTO 0 % (0-2); EOSINOPHILS PERCENT AUTO 0 % (0-6); Hematocrit 33.7 % (37.0-53.0); Hemoglobin 11.5 g/dL (13.5-17.5); IMMATURE GRAN ABSOLUTE AUTO 0.19 K/mm3 (0.00-0.10); IMMATURE GRAN PERCENT AUTO 2 % (0-1); LYMPHOCYTES ABSOLUTE AUTO 0.38 K/mm3 (0.84-5.20); LYMPHOCYTES PERCENT AUTO 4 % (21-46); MONOCYTES ABSOLUTE AUTO 0.57 K/mm3 (0.16-1.47); MONOCYTES PERCENT AUTO 6 % (4-13); Mean Corpuscular HGB 30.7 pg (26.0-34.0); Mean Corpuscular HGB Conc 34.1 g/dL (31.5-36.5); Mean Corpuscular Volume 90 fL (80-100); Mean Platelet Volume 9.2 fL (9.1-12.4); NEUTROPHILS ABSOLUTE AUTO 9.25 K/mm3 (1.96-9.15); NEUTROPHILS PERCENT AUTO 89 % (41-73); Platelet Count 252 K/mm3 (150-400); RDW Coefficient Variation 15.2 % (11.7-14.2); RDW Standard Deviation 50.3 fL (35.1-46.3); Red Blood Cell Count 3.75 M/mm3 (4.30-5.90)
[2019-12-24 06:14] LABS: Bun/Creatinine Ratio 36.6 (12.0-20.0); Calcium, Blood 8.8 mg/dL (8.5-10.1); Creatinine, Blood 1.64 mg/dL (0.60-1.20)
--- NOTE | 2019-12-24 17:46 | NUR ---
PATIENT A/OX4, AT BEDSIDE FOR MOST OF THIS SHIFT. VSS, ON 3LO2 NOW AND AT BASELINE. DENIES ANY PAIN. SKIN INTACT. 20G IV TO L UPPER ARM WNL AND SL. NEW FISTULA TO R ARM. B/P'S ON ANKLES ONLY. NO DIALYSIS TODAY. TOLERATING ADA DIET. ACHS BLOOD SUGARS, NO COVERAGE NEEDED THIS SHIFT. CALM AND COOPERATIVE WITH CARE. PT TO EVAL AND TREAT.
--- NOTE | 2019-12-24 17:53 | NUR ---
PATIENT A/OX4, UP INDEPENDENTLY IN ROOM. LUNGS WITH EXP WHEEZES THROUGHOUT. MAINTAINING SATS ON RA. BIPAP AT NOC. COUGH IMPROVING TODAY WITH TYLENOL #3 AND ROBUTUSSIN. 20G IV TO R AC WNL AND SL. SCHEDULED SOLUMEDROL. SKIN INTACT. VSS THIS SHIFT. CALM AND COOPERATIVE WITH CARE. CALLS APPROPRIATELY FOR ASSISTANCE. PLANS TO DC HOME EARLY TOMORROW WITH .
[2019-12-25 05:07] LABS: BASOPHILS ABSOLUTE AUTO 0.06 K/mm3 (0.00-0.23); BASOPHILS PERCENT AUTO 0 % (0-2); EOSINOPHILS PERCENT AUTO 0 % (0-6); Hematocrit 38.4 % (37.0-53.0); Hemoglobin 12.7 g/dL (13.5-17.5); IMMATURE GRAN ABSOLUTE AUTO 0.62 K/mm3 (0.00-0.10); IMMATURE GRAN PERCENT AUTO 4 % (0-1); LYMPHOCYTES ABSOLUTE AUTO 0.79 K/mm3 (0.84-5.20); LYMPHOCYTES PERCENT AUTO 5 % (21-46); MONOCYTES ABSOLUTE AUTO 0.95 K/mm3 (0.16-1.47); MONOCYTES PERCENT AUTO 7 % (4-13); Mean Corpuscular HGB Conc 33.1 g/dL (31.5-36.5); Mean Corpuscular Volume 91 fL (80-100); Mean Platelet Volume 9.3 fL (9.1-12.4); NEUTROPHILS ABSOLUTE AUTO 12.18 K/mm3 (1.96-9.15); NEUTROPHILS PERCENT AUTO 84 % (41-73); NRBC ABSOLUTE 0.02 K/mm3 (0.00-0.02); NRBC Auto 0.1 /100 WBC (0.0-0.2); Platelet Count 277 K/mm3 (150-400); RDW Coefficient Variation 15.4 % (11.7-14.2); RDW Standard Deviation 50.9 fL (35.1-46.3); Red Blood Cell Count 4.23 M/mm3 (4.30-5.90)
--- NOTE | 2019-12-25 05:14 | NUR ---
SHIFT SUMMARY: 02 SAT 93-94% ON RA. EXPIRATORY WHEEZE AUSCULTATED IN L MID LOBE. FREQUENT DRY, HACKING COUGH WHILE AWAKE. L RIB/SIDE PAIN W/ COUGH. TYL#3 AND COUGH SYRUP ADMINISTERED W/GOOD EFFECT. PT HAS REMAINED ASLEEP W/ MINIMAL COUGHING DURING THE NIGHT. INDEPENDENT IN ROOM. NO ACUTE CHANGES OVERNIGHT.
[2019-12-25 05:28] LABS: Bun/Creatinine Ratio 38.4 (12.0-20.0); Calcium, Blood 8.8 mg/dL (8.5-10.1); Creatinine, Blood 1.59 mg/dL (0.60-1.20); Potassium, Blood 4.1 mmol/L (3.5-5.5)
[2019-12-25] MEDS ORDERED: BENZ100A PO (15:01)
[2019-12-25] MEDS ORDERED: ROBITUSSIN COU237 M1 PO (15:05)
[2019-12-25] MEDS ORDERED: COMBIVENT RESPIM4 GM INH (15:06)
[2019-12-25] MEDS ORDERED: PRED20 PO (15:07)
[2019-12-25] MEDS ORDERED: BENADRYL25 MG PO (15:08)
--- NOTE | 2019-12-25 15:20 | NUR ---
PATIENT DC'D TO HOME WITH . RX MEDICATIONS FAXED TO [facility] IN [place]. DC INSTRUCTIONS AND EDUCATION DISCUSSED WITH PATIENT AND COPY PROVIDED, PATIENT DENIES ANY FURTHER QUESTIONS OR CONCERNS.
== END 2019-12-25 15:25 | disposition home or self-care (01) | DRG 202 ==
LOC: ER 02:00 → ICUW 03:40 → PCU 03:40 → ICUW 04:15 → PCU 12-21 14:15 → MEDS 12-22 16:30 → ENPENDDIS 12-25 14:23 → MEDS 12-25 15:25
PROVIDERS: Emergency Medicine; Internal Medicine; Internal Medicine Endocrinology, Diabetes & Metabolism; ADMIT Internal Medicine
PROC: 5A09457 Assistance with Respiratory Ventilation, 24-96 Consecutive Hours, Continuous Positive Airway Pressure (ICD-10-PCS; principal; 2019-12-20)
DX: J45.909 Unspecified asthma, uncomplicated (principal); E87.1 Hypo-osmolality and hyponatremia; J44.1 Chronic obstructive pulmonary disease with (acute) exacerbation; I48.20 Chronic atrial fibrillation, unspecified; I12.9 Hypertensive chronic kidney disease with stage 1 through stage 4 chronic kidney disease, or unspecified chronic kidney disease; K74.3 Primary biliary cirrhosis; M10.9 Gout, unspecified; G47.33 Obstructive sleep apnea (adult) (pediatric); I25.10 Atherosclerotic heart disease of native coronary artery without angina pectoris; Z87.891 Personal history of nicotine dependence; E78.00 Pure hypercholesterolemia, unspecified; R07.89 Other chest pain; N18.3 Chronic kidney disease, stage 3 (moderate); N40.0 Benign prostatic hyperplasia without lower urinary tract symptoms
CPT/HCPCS: 0099U; 36415; 71045; 78582; 80048; 80053; 80069; 83690; 83880; 84145; 84484; 85025; 85379; 93005; 93010; 94640; 94644; 94660; 94667; 94762; 98960; 99285-25; A9270-GY; A9540; A9558; J2060; J2930; J7030

== ENCOUNTER 2020-02-27 15:09 | Emergency (ER) | payer MEDICARE ==
[2020-02-27 15:37] LABS: BASOPHILS ABSOLUTE AUTO 0.05 K/mm3 (0.00-0.23); BASOPHILS PERCENT AUTO 1 % (0-2); EOSINOPHILS ABSOLUTE AUTO 0.37 K/mm3 (0.00-0.68); EOSINOPHILS PERCENT AUTO 4 % (0-6); Hemoglobin 11.6 g/dL (13.5-17.5); IMMATURE GRAN ABSOLUTE AUTO 0.07 K/mm3 (0.00-0.10); IMMATURE GRAN PERCENT AUTO 1 % (0-1); LYMPHOCYTES ABSOLUTE AUTO 0.78 K/mm3 (0.84-5.20); LYMPHOCYTES PERCENT AUTO 8 % (21-46); MONOCYTES ABSOLUTE AUTO 1.42 K/mm3 (0.16-1.47); MONOCYTES PERCENT AUTO 14 % (4-13); Mean Corpuscular HGB 30.4 pg (26.0-34.0); Mean Corpuscular HGB Conc 33.1 g/dL (31.5-36.5); Mean Corpuscular Volume 92 fL (80-100); Mean Platelet Volume 9.6 fL (9.1-12.4); NEUTROPHILS ABSOLUTE AUTO 7.68 K/mm3 (1.96-9.15); NEUTROPHILS PERCENT AUTO 74 % (41-73); Platelet Count 235 K/mm3 (150-400); RDW Coefficient Variation 14.8 % (11.7-14.2); Red Blood Cell Count 3.81 M/mm3 (4.30-5.90); White Blood Cell Count 10.37 K/mm3 (4.00-11.30)
[2020-02-27 15:50] LABS: Alanine Aminotransfer (ALT/SGP 31 U/L (12-78); Albumin, Blood 3.2 g/dL (3.4-5.0); Albumin/Globulin Ratio 0.9 (0.8-1.8); Alk Phos 91 U/L (50-136); Anion Gap 10 mmol/L (6-16); Aspartate Aminotrans (AST/SGOT 28 U/L (12-37); Bilirubin, Total 0.4 mg/dL (0.1-1.0); Blood Urea Nitrogen 31 mg/dL (8-24); Bun/Creatinine Ratio 21.4 (12.0-20.0); CO2, Blood 22 mmol/L (21-32); Calcium, Blood 8.2 mg/dL (8.5-10.1); Chloride, Blood 94 mmol/L (98-108); Creatinine, Blood 1.45 mg/dL (0.60-1.20); Globulin, Blood 3.5 g/dL (2.2-4.0); Glomerular Filtration Rate 50 (60-); Glucose, Blood 102 mg/dL (70-99); Potassium, Blood 4.5 mmol/L (3.5-5.5); Sodium, Blood 126 mmol/L (136-145); Total Protein, Blood 6.7 g/dL (6.4-8.2); Troponin I <0.015 ng/mL (0.000-0.040)
== END 2020-02-27 17:51 | disposition home or self-care (01) ==
PROVIDERS: Emergency Medicine
DX: R07.9 Chest pain, unspecified (principal); I48.20 Chronic atrial fibrillation, unspecified; I12.9 Hypertensive chronic kidney disease with stage 1 through stage 4 chronic kidney disease, or unspecified chronic kidney disease; N18.9 Chronic kidney disease, unspecified; K21.9 Gastro-esophageal reflux disease without esophagitis; J44.9 Chronic obstructive pulmonary disease, unspecified; Z88.8 Allergy status to other drugs, medicaments and biological substances; Z79.899 Other long term (current) drug therapy; Z79.01 Long term (current) use of anticoagulants

== ENCOUNTER → 2020-02-27 | Outpatient (CLI) | payer MEDICARE ==
[~2020-02-27] MED LIST changes: +Allopurinol100 MG PO; +BENADRYL25 MG PO; +BENZ100A PO; +COMBIVENT RESPIM4 GM INH; +CYCL10 PO; +OMEP20ER PO; +ROBITUSSIN COU237 M1 PO
[2020-02-27 14:56] LABS: BASOPHILS ABSOLUTE AUTO 0.05 K/mm3 (0.00-0.23); BASOPHILS PERCENT AUTO 1 % (0-2); EOSINOPHILS ABSOLUTE AUTO 0.35 K/mm3 (0.00-0.68); EOSINOPHILS PERCENT AUTO 3 % (0-6); Hematocrit 36.7 % (37.0-53.0); Hemoglobin 12.6 g/dL (13.5-17.5); IMMATURE GRAN ABSOLUTE AUTO 0.08 K/mm3 (0.00-0.10); IMMATURE GRAN PERCENT AUTO 1 % (0-1); LYMPHOCYTES ABSOLUTE AUTO 0.88 K/mm3 (0.84-5.20); LYMPHOCYTES PERCENT AUTO 8 % (21-46); MONOCYTES PERCENT AUTO 10 % (4-13); Mean Corpuscular HGB 31.1 pg (26.0-34.0); Mean Corpuscular HGB Conc 34.3 g/dL (31.5-36.5); Mean Corpuscular Volume 91 fL (80-100); Mean Platelet Volume 9.2 fL (9.1-12.4); NEUTROPHILS ABSOLUTE AUTO 8.43 K/mm3 (1.96-9.15); NEUTROPHILS PERCENT AUTO 77 % (41-73); Platelet Count 240 K/mm3 (150-400); RDW Standard Deviation 49.9 fL (35.1-46.3); Red Blood Cell Count 4.05 M/mm3 (4.30-5.90); White Blood Cell Count 10.89 K/mm3 (4.00-11.30)
[2020-02-27 15:12] LABS: Anion Gap 10 mmol/L (6-16); Blood Urea Nitrogen 29 mg/dL (8-24); Bun/Creatinine Ratio 17.2 (12.0-20.0); CO2, Blood 23 mmol/L (21-32); Calcium, Blood 8.8 mg/dL (8.5-10.1); Chloride, Blood 91 mmol/L (98-108); Creatinine, Blood 1.69 mg/dL (0.60-1.20); Glomerular Filtration Rate 39 (60-); Glucose, Blood 125 mg/dL (70-99); Potassium, Blood 4.6 mmol/L (3.5-5.5); Sodium, Blood 124 mmol/L (136-145)
[2020-02-27 15:14] LABS: Troponin I <0.017 ng/mL (0.000-0.040)
== END | disposition home or self-care (01) ==
LOC: LAB EV 14:52 → LAB SHORT 14:52
PROVIDERS: Family Medicine
DX: R07.9 Chest pain, unspecified (principal)
CPT/HCPCS: 80048; 84484; 85025

== ENCOUNTER 2020-06-17 06:52 | Emergency (ER) | payer MEDICARE ==
[~2020-06-17] VITALS: Ht 177.8 cm; Wt 99.8 kg
[2020-06-17 07:34] LABS: BASOPHILS ABSOLUTE AUTO 0.05 K/mm3 (0.00-0.23); BASOPHILS PERCENT AUTO 1 % (0-2); EOSINOPHILS ABSOLUTE AUTO 0.36 K/mm3 (0.00-0.68); EOSINOPHILS PERCENT AUTO 4 % (0-6); Hematocrit 41.6 % (37.0-53.0); Hemoglobin 13.6 g/dL (13.5-17.5); IMMATURE GRAN ABSOLUTE AUTO 0.05 K/mm3 (0.00-0.10); IMMATURE GRAN PERCENT AUTO 1 % (0-1); LYMPHOCYTES ABSOLUTE AUTO 0.99 K/mm3 (0.84-5.20); LYMPHOCYTES PERCENT AUTO 10 % (21-46); MONOCYTES ABSOLUTE AUTO 0.88 K/mm3 (0.16-1.47); MONOCYTES PERCENT AUTO 9 % (4-13); Mean Corpuscular HGB 31.1 pg (26.0-34.0); Mean Corpuscular HGB Conc 32.7 g/dL (31.5-36.5); Mean Corpuscular Volume 95 fL (80-100); Mean Platelet Volume 9.7 fL (9.1-12.4); NEUTROPHILS ABSOLUTE AUTO 7.68 K/mm3 (1.96-9.15); NEUTROPHILS PERCENT AUTO 77 % (41-73); Platelet Count 216 K/mm3 (150-400); RDW Coefficient Variation 17.3 % (11.7-14.2); RDW Standard Deviation 61.1 fL (35.1-46.3); Red Blood Cell Count 4.37 M/mm3 (4.30-5.90); White Blood Cell Count 10.01 K/mm3 (4.00-11.30)
[2020-06-17 07:57] LABS: Source, Urine Clean Catch
[2020-06-17 08:00] LABS: Bilirubin, Urine Neg (Neg); Blood, Urine Neg (Neg); Glucose Qualitative, Urine Neg (Neg); Ketones, Urine Neg (Neg); Leukocyte Esterase, Urine Neg (Neg); Nitrite, Urine Neg (Neg); Protein, Urine Neg (Neg); Specific Gravity, Urine 1.015 (1.003-1.022); Urobilinogen, Urine NORM (Normal)
[2020-06-17 08:00] LABS: Albumin, Blood 3.5 g/dL (3.4-5.0); Albumin/Globulin Ratio 0.9 (0.8-1.8); Bilirubin, Total 0.4 mg/dL (0.1-1.0); Bun/Creatinine Ratio 16.5 (12.0-20.0); Creatinine, Blood 1.7 mg/dL (0.60-1.20); Globulin, Blood 3.8 g/dL (2.2-4.0); Potassium, Blood 4.1 mmol/L (3.5-5.5); Total Protein, Blood 7.3 g/dL (6.4-8.2)
[2020-06-17 08:06] LABS: Appearance, Urine Clear (Clear); Color, Urine Yellow (P-Yellow)
[2020-06-17] MEDS ORDERED: TRAM50 PO (09:08)
[2020-06-17] MEDS ORDERED: METR500 PO (09:08)
[2020-06-17] MEDS ORDERED: CIPR500 PO (09:08)
== END 2020-06-17 09:18 | disposition home or self-care (01) ==
LOC: ER 06:52
PROVIDERS: Emergency Medicine
DX: K57.32 Diverticulitis of large intestine without perforation or abscess without bleeding (principal); M25.851 Other specified joint disorders, right hip; J44.9 Chronic obstructive pulmonary disease, unspecified; K21.9 Gastro-esophageal reflux disease without esophagitis; I12.9 Hypertensive chronic kidney disease with stage 1 through stage 4 chronic kidney disease, or unspecified chronic kidney disease; N18.4 Chronic kidney disease, stage 4 (severe); E78.00 Pure hypercholesterolemia, unspecified; Z88.8 Allergy status to other drugs, medicaments and biological substances; Z79.01 Long term (current) use of anticoagulants; Z79.899 Other long term (current) drug therapy; Z79.52 Long term (current) use of systemic steroids
CPT/HCPCS: 36415; 74177; 80053; 81003; 83690; 85025; J2270; J2405; J3010; J7030; Q9967

== ENCOUNTER 2021-01-30 21:06 | Inpatient (IN) | payer MEDICARE ==
[~2021-01-30] VITALS: Ht 177.8 cm; Wt 115.4 kg
[~2021-01-30 21:06] MED LIST changes: +AMLO5 PO; +C COMPLEX1000 M2 PO; +CALCIUM MAGNES1 EAC1 PO; +CIPR500 PO; +COENZYME Q10100 MG PO; +Enalapril Malea20 MG PO; +FERROUS SULFAT325 M1 PO; +FURO20 PO; +Lovastatin40 MG PO; +METR500 PO; +OMEGA-3 FISH O1 EA13 PO; +POTASSIUM GLUCO99 M1 PO; +SYMBICORT 160-4.6 GM INH; +TRAM50 PO; +URSO300 PO; +VITAMIN D5000 UNIT PO; +ZINC15 PO; +Zyloprim100 MG PO
[2021-01-30 22:47] LABS: Hematocrit 39.5 % (37.0-53.0); Hemoglobin 12.9 g/dL (13.5-17.5); Mean Corpuscular HGB 32.7 pg (26.0-34.0); Mean Corpuscular HGB Conc 32.7 g/dL (31.5-36.5); Mean Corpuscular Volume 100 fL (80-100); NRBC ABSOLUTE 0.02 K/mm3 (0.00-0.02); NRBC Auto 0.1 /100 WBC (0.0-0.2); Platelet Count 252 K/mm3 (150-400); RDW Standard Deviation 51.8 fL (35.1-46.3); Red Blood Cell Count 3.95 M/mm3 (4.30-5.90); White Blood Cell Count 29.36 K/mm3 (4.00-11.30)
[2021-01-30 23:03] LABS: Albumin/Globulin Ratio 0.9 (0.8-1.8); Bilirubin, Total 0.9 mg/dL (0.1-1.0); Bun/Creatinine Ratio 15.3 (12.0-20.0); Calcium, Blood 7.8 mg/dL (8.5-10.1); Creatinine, Blood 3.01 mg/dL (0.60-1.20); Globulin, Blood 3.2 g/dL (2.2-4.0); Potassium, Blood 4.3 mmol/L (3.5-5.5); Total Protein, Blood 6.2 g/dL (6.4-8.2)
[2021-01-30 23:11] LABS: BAND PERCENT MAN 14 % (0-8); BASOPHILS PERCENT MAN 0 % (0-2); EOSINOPHILS PERCENT MAN 0 % (0-6); LYMPHOCYTES ABSOLUTE MAN 0.29 K/mm3 (0.84-5.20); LYMPHOCYTES PERCENT MAN 1 % (21-46); MONOCYTES ABSOLUTE MAN 3.52 K/mm3 (0.16-1.47); MONOCYTES PERCENT MAN 12 % (4-13); NEUTROPHILS ABSOLUTE MAN 25.54 K/mm3 (1.96-9.15); SEG NEUTROPHILS PERCENT MAN 73 % (41-73); TOTAL CELLS COUNTED 100
[2021-01-31 04:33] LABS: Bun/Creatinine Ratio 14.7 (12.0-20.0); Calcium, Blood 7.6 mg/dL (8.5-10.1); Creatinine, Blood 3.53 mg/dL (0.60-1.20); Potassium, Blood 5.4 mmol/L (3.5-5.5)
--- NOTE | 2021-01-31 05:16 | NUR ---
shift summary pt arrived to unit at about 0300 - alert and oriented, but very tired. cooperative with plan of care. placed on iso for rule out of c.diff, pt been having very frequent and loose bm's. rectal tube inserted and sample sent to lab. came up from ed on 10l nrb mask, weaned down to 2lnc satting 96%. tele afib, normal for patient. urinal at bedside. pt right arm/shoulder immobilized via sling per surgeon. surgical site c/d/i. no c/o chest pain/pain. mainly c/o some nausea from time to time. vss. call light within [facility], bed in lowest position. will continue to monitor.
[2021-01-31 05:56] LABS: C DIFFICILE DNA NEGATIVE (Negative)
--- NOTE | 2021-01-31 11:58 | NUR ---
PATIENT COMPLAINS OF INCREASED ABDOMINAL PAIN, DR. COELLO NOTIFIED AND WILL COME TO ASSESS PATIENT.
[2021-01-31 13:55] LABS: Source, Urine Catheter
[2021-01-31 14:09] LABS: Appearance, Urine Clear (Clear); Blood, Urine 3+ (Neg); Color, Urine Amber (P-Yellow); Glucose Qualitative, Urine Neg (Neg); Ketones, Urine 1+ (Neg); Leukocyte Esterase, Urine 1+ (Neg); Nitrite, Urine Neg (Neg); Protein, Urine 2+ (Neg); Urobilinogen, Urine NORM (Normal)
[2021-01-31 14:50] LABS: Bilirubin, Urine 1+ (Neg)
[2021-01-31 14:51] LABS: Red Blood Cells, Urine 0-2 /hpf (0-2)
[2021-01-31 14:52] LABS: Amorphous Light (0-Heavy); Bacteria Few /hpf; Hyaline Casts 0-2 /lpf (0-2); Squamous Epithelial Cells Few /hpf (Few)
--- NOTE | 2021-01-31 18:16 | NUR ---
SHIFT SUMMARY PT IS A/O AND COOPERATIVE WITH CARE. PT WAS ABLE TO DANGLE LEGS FROM BED, STAND AND PIVOT TO COMMODE, PT REPORTED NAUSEA WHEN STANDING UP. PT BECAME NAUSOUS AFTER DRINKING MILK AND APLLE JUICE. ZOFRAN GIVEN PER EMAR. PT C/O LOWER ABDOMINAL PAIN THROUGHOUT SHIFT, PRN PAIN MEDS GIVEN PER EMAR. VVS. PT O2 SATS REMAINED >90% ON 2 L NC THROUGHT OUT SHIFT. PT HAS RECTAL TUBE AND WATT CATHETER IN PLACE. 20 GAUGE IV PATENT IN LEFT SHOULDER. PT RIGHT ARM IN SLING FOR SUPPORT. NS IV FLUIDS GOING AT 125 ML/HR. PT DIET CHANGED TO CLEAR LIQUIDS.
--- NOTE | 2021-01-31 18:28 | NUR ---
ADMIT: 01/30/21 DISCHARGE: DX: severe Sepsis CC: kwilcox JADEN CALL: RESIDENCE: home with spouse CAREGIVER: Monica, Spouse / Partner, DX: Afib, HTN, BPH, CP, CKD-stage 3, see list DME: CPAP, compression stockings CCM: none HOME HEALTH: none SUMMARY: Admit: 01/30/21 01/31/21- pt was d/c from [facility] after having shoulder surgery. He came in with severe abd pain and was found to have sepsis. He was started on IV antibiotics. Pt is having bouts of diarrhea. Pt is on O2- 2L. No plan for d/c at this time. -stas
--- NOTE | 2021-01-31 18:43 | NUR ---
THIS RN AGREES WITH STUDENT NURSE SHIFT SUMMARY NOTE.
[2021-02-01 04:21] LABS: Hematocrit 33.7 % (37.0-53.0); Mean Corpuscular HGB 32.7 pg (26.0-34.0); Mean Corpuscular HGB Conc 32.6 g/dL (31.5-36.5); Mean Corpuscular Volume 100 fL (80-100); Platelet Count 176 K/mm3 (150-400); RDW Coefficient Variation 14.2 % (11.7-14.2); RDW Standard Deviation 52.3 fL (35.1-46.3); Red Blood Cell Count 3.36 M/mm3 (4.30-5.90); White Blood Cell Count 11.02 K/mm3 (4.00-11.30)
[2021-02-01 04:40] LABS: BAND PERCENT MAN 46 % (0-8); BASOPHILS PERCENT MAN 0 % (0-2); EOSINOPHILS PERCENT MAN 0 % (0-6); LYMPHOCYTES ABSOLUTE MAN 0.11 K/mm3 (0.84-5.20); LYMPHOCYTES PERCENT MAN 1 % (21-46); METAMYELOCYTE ABSOLUTE MAN 0.11 K/mm3 (0.00-0.00); METAMYELOCYTE PERCENT MAN 1 % (0-0); MONOCYTES ABSOLUTE MAN 0.77 K/mm3 (0.16-1.47); MONOCYTES PERCENT MAN 7 % (4-13); NEUTROPHILS ABSOLUTE MAN 10.02 K/mm3 (1.96-9.15); SEG NEUTROPHILS PERCENT MAN 45 % (41-73); TOTAL CELLS COUNTED 100
[2021-02-01 04:45] LABS: Alanine Aminotransfer (ALT/SGP 16 U/L (12-78); Albumin, Blood 2.2 g/dL (3.4-5.0); Albumin/Globulin Ratio 0.7 (0.8-1.8); Alk Phos 56 U/L (50-136); Anion Gap 10 mmol/L (6-16); Aspartate Aminotrans (AST/SGOT 119 U/L (12-37); Bilirubin, Total 0.5 mg/dL (0.1-1.0); Blood Urea Nitrogen 72 mg/dL (8-24); Bun/Creatinine Ratio 17.2 (12.0-20.0); CO2, Blood 19 mmol/L (21-32); Calcium, Blood 7.5 mg/dL (8.5-10.1); Chloride, Blood 105 mmol/L (98-108); Creatinine, Blood 4.19 mg/dL (0.60-1.20); Globulin, Blood 3.3 g/dL (2.2-4.0); Glomerular Filtration Rate 15 (60-); Glucose, Blood 92 mg/dL (70-99); Magnesium, Blood 2.1 mg/dL (1.6-2.4); Phosphorus, Blood 6.2 mg/dL (2.5-4.9); Sodium, Blood 134 mmol/L (136-145); Total Protein, Blood 5.5 g/dL (6.4-8.2)
[2021-02-01 04:54] LABS: C-REACTIVE PROTEIN, EXT RANGE >19.000 mg/dL (0.000-0.300)
--- NOTE | 2021-02-01 06:33 | NUR ---
shift summary pt rested well through night. c/o pain in abd - see emar. alert and oriented, able to make needs known. cooperative with plan of care. hu draining, rectal tube draining. adjusts self well in bed. vss. call light wtihin reach, bed in lowest position. will continue to monitor.
--- NOTE | 2021-02-01 10:29 | NUR ---
THIS RN AGREES WITH STUDENT NURSE SHIFT ASSESSMENT DOCUMENTATION.
[2021-02-01 15:27] LABS: Albumin, Blood 2.1 g/dL (3.4-5.0); Anion Gap 11 mmol/L (6-16); Blood Urea Nitrogen 81 mg/dL (8-24); Bun/Creatinine Ratio 18.2 (12.0-20.0); CO2, Blood 15 mmol/L (21-32); Calcium, Blood 7.8 mg/dL (8.5-10.1); Chloride, Blood 106 mmol/L (98-108); Creatinine, Blood 4.44 mg/dL (0.60-1.20); Glomerular Filtration Rate 14 (60-); Glucose, Blood 95 mg/dL (70-99); Phosphorus, Blood 6.3 mg/dL (2.5-4.9); Potassium, Blood 4.7 mmol/L (3.5-5.5); Sodium, Blood 132 mmol/L (136-145)
[2021-02-01 15:28] LABS: CPK Creatine Kinase 1256 U/L (39-308)
--- NOTE | 2021-02-01 17:53 | NUR ---
SHIFT SUMMARY PT IS A/O AND IS COOPERATIVE OF CARE. PT CALLS FOR ASSISTANCE APPROPIATELY. VVS THROUGHOUT SHIFT. PT O2 SATS MAINTAINED >91%, ON 1 L VIA NASAL CANNULA DOWN TO RA REST OF SHIFT. PT HAD C/O LOWER ABDOMINAL PAIN THAT WAS TREATED WITH FENTANYL AND NORCO PER EMAR. PT REPORTS NO CHEST PAIN OR PRESSURE. PT SAT AT BEDSIDE AND DANGLED LEGS AND STOOD UP NEXT TO BED, PT BEGAN TO BECOME UNSTEADY SO SAT BACK DOWN ON EDGE OF BED. PT RT SHOULDER SLING IN PLACE, NO C/O PAIN FOR SHOULDER. SQ NAROPIN CONTINUED ORDERED. WATT CATHETER AND RECTAL TUBE IN PLACE. PT ABLE TO TOLERATE BROTH FOR LUNCH AND DINNER WITH NO C/O NAUSEA.
--- NOTE | 2021-02-01 19:29 | NUR ---
THIS RN AGREES WITH STUDENT NURSE SHIFT ASSESSMENT.
--- NOTE | 2021-02-01 22:30 | NUR ---
ASSUMED CARE OF PATIENT AT APPROXIMATELY 1910 FROM TAJ Meléndez RN. PATIENT ALERT AND ORIENTED X4; SLEEPS OFF AND ON. PATIENT REPORTS PAIN IN ABDOMEN AT A 5/10 ALL DAY; CALLED DR. RIVER; INCREASED FREQUENCY AND DOSE OF FENTANYL. PATIENT DENIES NUMBNESS, TINGLING, DIZZINESS OR NAUSEA. HAS RIGHT SHOULDER IN SLING FROM SURGERY RECENTLY; PATIET REPORTS PAIN PUMP (SC NAROPIN) IN PLACE. AFIB W/ OCCASIONAL PACER SPIKE ON TELE; OXYGEN SATURATION ABOVE 90% ON ROOM AIR. PATIENT REFUSED REPOSISTION AT TIMES. RECTAL TUBE IN PLACE; URIANRY CATH IN PLACE. TOLERATES SIPS OF WATER. PIV INFUSING PER ORDER. PATIENT CURRENTLY RESTING IN BED; CALL LIGHT IN REACH; BED IN LOWEST POSISTION; BED ALARM ON
[2021-02-02 04:47] LABS: Hematocrit 31.8 % (37.0-53.0); Hemoglobin 10.3 g/dL (13.5-17.5); Mean Corpuscular HGB 32.5 pg (26.0-34.0); Mean Corpuscular HGB Conc 32.4 g/dL (31.5-36.5); Mean Corpuscular Volume 100 fL (80-100); Mean Platelet Volume 9.8 fL (9.1-12.4); NRBC ABSOLUTE 0.11 K/mm3 (0.00-0.02); NRBC Auto 0.7 /100 WBC (0.0-0.2); Platelet Count 196 K/mm3 (150-400); RDW Coefficient Variation 14.2 % (11.7-14.2); RDW Standard Deviation 52.3 fL (35.1-46.3); Red Blood Cell Count 3.17 M/mm3 (4.30-5.90); White Blood Cell Count 14.81 K/mm3 (4.00-11.30)
[2021-02-02 05:09] LABS: BAND PERCENT MAN 25 % (0-8); BASOPHILS PERCENT MAN 0 % (0-2); EOSINOPHILS PERCENT MAN 0 % (0-6); LYMPHOCYTES ABSOLUTE MAN 0.44 K/mm3 (0.84-5.20); LYMPHOCYTES PERCENT MAN 3 % (21-46); MONOCYTES ABSOLUTE MAN 1.62 K/mm3 (0.16-1.47); MONOCYTES PERCENT MAN 11 % (4-13); NEUTROPHILS ABSOLUTE MAN 12.73 K/mm3 (1.96-9.15); SEG NEUTROPHILS PERCENT MAN 61 % (41-73); TOTAL CELLS COUNTED 100
[2021-02-02 05:10] LABS: Albumin, Blood 2.1 g/dL (3.4-5.0); Albumin/Globulin Ratio 0.6 (0.8-1.8); Bilirubin, Total 0.4 mg/dL (0.1-1.0); Bun/Creatinine Ratio 18.2 (12.0-20.0); Calcium, Blood 7.8 mg/dL (8.5-10.1); Creatinine, Blood 5.23 mg/dL (0.60-1.20); Globulin, Blood 3.5 g/dL (2.2-4.0); Magnesium, Blood 2.1 mg/dL (1.6-2.4); Phosphorus, Blood 6.8 mg/dL (2.5-4.9); Potassium, Blood 4.9 mmol/L (3.5-5.5); Total Protein, Blood 5.6 g/dL (6.4-8.2)
--- NOTE | 2021-02-02 06:45 | NUR ---
PATIENT SLEPT ABOUT SEVEN HOURS; REPOSISTIONED FREQUENTLY. WANTED TO SIT ON SIDE OF BED; FALL RISK; MOVED TO RECLINER AND BACK TO BED. PAIN CONTROLLED BETTER WITH PAIN MEDICATION; REPORTS CAN START TO FEEL PAIN IN SHOULDER; ON Q PUMP APPEARS DRY; PHARMACY DOESNT HAVE ANOTHER; TUBE MACHINE OPERATOR NOTIFIED. NO ANOTHER ACUTE CHANGES. VSS.
--- NOTE | 2021-02-02 13:53 | NUR ---
REPORT GIVEN TO CHELO OSEGUERA ON SURGICAL.
--- NOTE | 2021-02-02 14:10 | NUR ---
DR. MERA KENT NOTIFIED AND ORDER DC'D.
--- NOTE | 2021-02-02 18:37 | NUR ---
SHIFT SUMMARY PT TRANSFERRED FROM PCU AT 1400. A&OX4, TELE AFIB 96, AT BEDSIDE, PAIN MANAGED WITH 25 MCGS OF FENT. CL DIET, DENIES N&V, ABD DISTENDED. WATT PATENT & DRAINING YELLOW URINE; RECTAL TUBE IN PLACE WITH BROWN OUTPUT. WILL REPORT TO ONCOMING RADHA RN.
--- NOTE | 2021-02-02 19:55 | NUR ---
RECEIVED REPORT AND ASSUMED CARE OF PT. PT REPORTS HEARTBURN/ACID REFLUX, WILL CONTACT ON-CALL PHYSICIAN FOR ORDERS IF ZOFRAN IS INEFFECTIVE.
--- NOTE | 2021-02-03 03:19 | NUR ---
SHIFT SUMMARY: STACY IS A&OX3. VSS, NO ACUTE EVENTS OVERNIGHT. HE DOES REPORT SOB IN CERTAIN POSITIONS WHICH HE STATES IS D/T ABDOMINAL PRESSURE. HE ESTIMATES THAT HIS ABDOMEN IS 2-3 TIMES LARGER THAN NORMAL. HEARTBURN/ACIDE REFLUX IMPROVED WITH GI COCKTAIL ORDER FROM ON-CALL PHYSICIAN. IMMOBILIZER IN PLACE TO R ARM. URINE OUTPUT LOW DESPITE DOSE OF LASIX WHICH WAS GIVEN ON DAY SHIFT. HE IS TOLERATING SIPS OF WATER, STATES JUICE CAUSES NAUSEA. WATT DRAINING TEA COLORED URINE. FLEXISEAL DRAINING LIQUID BM. HE IS ABLE TO TURN/REPOSITION HIMSELF MINIMALLY, ASSISTANCE REQUIRED. HE IS LYING IN BED WITH THE CALL LIGHT IN REACH. WILL REPORT TO DAY SHIFT RN.
[2021-02-03 05:13] LABS: Anion Gap 14 mmol/L (6-16); Blood Urea Nitrogen 122 mg/dL (8-24); Bun/Creatinine Ratio 19.2 (12.0-20.0); CO2, Blood 13 mmol/L (21-32); Calcium, Blood 8.3 mg/dL (8.5-10.1); Chloride, Blood 104 mmol/L (98-108); Creatinine, Blood 6.36 mg/dL (0.60-1.20); Glomerular Filtration Rate 9 (60-); Glucose, Blood 102 mg/dL (70-99); Phosphorus, Blood 6.5 mg/dL (2.5-4.9); Potassium, Blood 4.5 mmol/L (3.5-5.5); Sodium, Blood 131 mmol/L (136-145)
--- NOTE | 2021-02-03 07:33 | NUR ---
recvd report from previous shift RN Isatu, pt sleeping in bed, awakens easily, bed in lowest position, bed rails up x 2, hu catheter in place draining scant tea colored urine, rectal tube in place draining brown liquid stool, call light in pt's hand. pt awakens and requests to go to [facility], is confused but reorients well, is able to answer questions, rates pain in neck at 5/10.
--- NOTE | 2021-02-03 08:00 | NUR ---
notified dr olmedo of lab results; received orders for temporary dialysis catheter placement and increased level of care. notified pt and pt's of transfer
--- NOTE | 2021-02-03 10:38 | NUR ---
TRANSFER PT ARRIVED TO ICU 2 AT 0944 PCU STATUS FOR DIALYSIS CATHETER PLACEMENT. DR. FELICIANO INFORMED OF CONSULT. PT ALERT, ORIENTED TO SELF AND DATE, DISORIENTED TO LOCATION AND WHY HE IS IN THE HOSPITAL. LARGE AMOUNT OF BRUISING TO R SHOULDER, CHEST AND EYE. IMMOBILIZER IN PLACE ON R SHOULDER. RECTAL TUBE WITH LIQUID STOOL COMING OUT. PT COMPLAINS OF DISCOMFORT IN HIS RECTUM. TUBE CHECKED AND IT IS PLACED PROPERLY. PT'S LUNGS ARE CLEAR, DIM IN THE BASES, ON RA. MONITOR SHOWS AFIB, BP STABLE. WATT IN PLACE WITH SCANT URINE IN THE BAG. DR. FELICIANO SETTING UP FOR CATHTETER PLACEMENT CURRENTLY. COTNINUING TO MONITOR
--- NOTE | 2021-02-03 17:01 | NUR ---
SHIFT SUMMARY PT'S CONFUSION HAS GOTTEN WORSE THROUGHOUT THE SHIFT. HE IS PLEASANTLY CONFUSED, OFTEN LAUGHING AT ANYTHING SAID AROUND HIM. HE IS ALSO HALLUCINATING, LOOKING AT AND TALKING TO PEOPLE WHEN THE ROOM IS EMPTY. DURING DIALYSIS PT'S BP DROPPED AND REQUIRED PRESSORS. DR. TESFAYE NOTIFIED AND ORDER RECEIVED FOR GLOBAL TRANSPORTATION MANAGER CONSULT. DR. FELICIANO NOTIFIED AND RECEIVED ORDER FOR LEVOPHED AND ALBUMIN. BLOOD PRESSURE IMPROVED WITH BOTH AND DIALYSIS WAS ABLE TO BE FINISHED. HIS LUNGS HAVE AN EXPIRATORY WHEEZE THIS EVENING. SPOKE WITH DR. FELICIANO AND RECEIVED ORDER FOR BREATHING TX. REMAINS AFIB. RATE IN THE LOW 100S SINCE LEVOPHED STARTED, BUT NOW THAT DIALYSIS IS DONE LEVOPHED IS BEING TITRATED BACK DOWN. PT'S ABDOMEN APPEARS MORE DISTENDED AND FIRMER THAN WHEN HE ARRIVED TO UNIT. TENDER TO LIGHT PALPATION. NO BOWEL TONES AUSCULTATED. CT PENDING AVAILABILITY. WATT WITH SCANT URINE OUTPUT. PT'S VISITED DURING DIALYSIS AND WAS UPDATED BY DRS AND NURSING STAFF. NOW THAT DIALYSIS IS DONE.
[2021-02-03 20:35] LABS: PCO2 Arterial 34.5 mmHg (35-45); PO2 Arterial 68.6 mmHg (80-100); pH Blood Arterial 7.39 (7.35-7.45)
--- NOTE | 2021-02-03 22:34 | NUR ---
ASSUMED PT CARE FROM OUMAR TREJO PT RESTING IN BED ALERT AND ORIENTED TO SELF AND YEAR. VERY CONFUSED AND HALLUCINATING; BOTH VISUAL AND AUDITORY. NS INFUSING AT 50MLS/HR WITH LEVOPHED AT 2MCG/MIN VIA TRIALYSIS CATH NOTED TO RIGHT IJ; PT RECEIVED DIALYSIS TODAY PER REPORT. RIGHT ARM IN IMMOBILIZER SECONDARY TO RECENT SHOULDER SURGERY. HONEY COMB DRESSING IS CDI WITH DIFFUSE BRUISING TO RIGHT ARM, SHOULDER, AND LATERAL CHEST WALL. PT ALSO NOTED TO HAVE A BRUISED RIGHT EYE. ABDOMEN IS SEVERELY DISTENDED, FIRM UPON PALPATION WITH ABSENT TONES. C/O DISCOMFORT; HOWEVER, UNABLE TO VERBALIZE OR DESCRIBE PAIN AND SEVERITY. PT APPEARS VERY SOB. PURSED LIP BREATHING NOTED AT TIMES. DOES NOT TOLERATE LYING FLAT. 4L OF OXYGEN VIA NC. NEW ORDERS FROM DR. FELICIANO TO USE BIPAP PRN, WELL OBTAIN ABG. NON-PRODUCTIVE COUGH NOTED. EXPIRATORY WHEEZES NOTED T/O ALL LOBES. RHYTHM IS IRREGULAR, AFIB WITH A RATE >100. LEVOPHED PLACED ON STANDBY UPON ASSUMPTION OF CARE D/T SBP 130'S; HOWEVER, THIS MAY HAVE BEEN DUE TO AGITATION PT IS STARTING TO TREND BACK DOWN. HE IS VERY CONFUSED AND AGITATED AT TIMES. NOTED TO PULL ON WATT CATHETER, WHICH CAUSED BLEEDING AROUND PENIS, WELL BLOOD NOTED TO WATT CATHETER BAG. WATT REPOSITIONED AWAY FROM PT'S SALESPERSON MEATS AND RESTRAINT REMAINS IN PLACE TO LEFT WRIST. RECTAL TUBE IS PATENT AND DRAINING BROWN LIQUID TO BAG. PT IS VERY EDEMATOUS WITH +2 PITTING TO BLE. ORDERS OBTAINED FOR PRECEDEX, WHICH WAS INTITIATED AT 0.2MCG/KG/HR. PT APPEARS MORE CALM AT THIS TIME AND IS NO LONGER HOLLERING/YELLING. NO FAMILY AT BEDSIDE AT THIS TIME. SEE SHIFT SUMMARY FOR FURTHER DETAILS.
[2021-02-04 03:35] LABS: Hematocrit 20.5 % (37.0-53.0); Hemoglobin 7.2 g/dL (13.5-17.5); Mean Corpuscular HGB 32.4 pg (26.0-34.0); Mean Corpuscular HGB Conc 35.1 g/dL (31.5-36.5); Mean Corpuscular Volume 92 fL (80-100); Mean Platelet Volume 9.9 fL (9.1-12.4); NRBC ABSOLUTE 0.23 K/mm3 (0.00-0.02); NRBC Auto 1.3 /100 WBC (0.0-0.2); Platelet Count 157 K/mm3 (150-400); RDW Coefficient Variation 13.9 % (11.7-14.2); RDW Standard Deviation 47.6 fL (35.1-46.3); Red Blood Cell Count 2.22 M/mm3 (4.30-5.90)
[2021-02-04 03:53] LABS: Albumin, Blood 2.6 g/dL (3.4-5.0); Anion Gap 9 mmol/L (6-16); Blood Urea Nitrogen 93 mg/dL (8-24); CO2, Blood 22 mmol/L (21-32); Calcium, Blood 7.9 mg/dL (8.5-10.1); Chloride, Blood 104 mmol/L (98-108); Creatinine, Blood 4.89 mg/dL (0.60-1.20); Glomerular Filtration Rate 12 (60-); Glucose, Blood 113 mg/dL (70-99); Phosphorus, Blood 4.3 mg/dL (2.5-4.9); Potassium, Blood 3.5 mmol/L (3.5-5.5); Sodium, Blood 135 mmol/L (136-145)
[2021-02-04 04:08] LABS: BAND PERCENT MAN 6 % (0-8); BASOPHILS PERCENT MAN 0 % (0-2); EOSINOPHILS PERCENT MAN 0 % (0-6); LYMPHOCYTES PERCENT MAN 4 % (21-46); METAMYELOCYTE ABSOLUTE MAN 1.22 K/mm3 (0.00-0.00); METAMYELOCYTE PERCENT MAN 7 % (0-0); MONOCYTES PERCENT MAN 8 % (4-13); MYELOCYTE ABSOLUTE MAN 0.52 K/mm3 (0.00-0.00); MYELOCYTE PERCENT MAN 3 % (0-0); NEUTROPHILS ABSOLUTE MAN 13.65 K/mm3 (1.96-9.15); SEG NEUTROPHILS PERCENT MAN 72 % (41-73); TOTAL CELLS COUNTED 100
--- NOTE | 2021-02-04 05:53 | NUR ---
END OF SHIFT SUMMARY PT HAS REMAINED PLEASANTLY CONFUSED T/O NIGHT. RIGHT ARM REMAINS IN IMMOBILIZER. LEFT WRIST IN A SOFT RESTRAINT D/T PT PICKING AND PULLING AT THINGS AND TRIALYSIS CATHETER IS PLACED TO RIGHT IJ. LEVOPHED REQUIREMENTS INCREASED DRASTICALLY IN THE MID NIGHT WITH MAX OF 20MCG/MIN. VASOPRESSIN WAS ORDERED, BUT NEVER STARTED D/T LEVOPHED TRENDING BACK DOWN; CURRENTLY AT 12MCG/MIN WITH SYSTOLIC BP SOFT 100'S. PRECEDEX STARTED WHEN PT WAS AGITATED AND PULLING ON WATT CATHETER; HOWEVER, IT WAS TURNED OFF WHEN LEVOPHED REQUIREMENTS STARTED INCREASING. PRECEDEX RESTARTED AT 0.2MCG/KG/HR SINCE LEVOPHED REQUIREMENTS HAVE TRENDED DOWN AND PT BECAME RESTLESS AND PULLING AT LINES/TUBES AGAIN. NS INFUSING AT 50ML/HR. RECTAL TUBE PUT OUT 900CC OF LIQUID BROWN STOOL. WATT CATHETER PATENT AND DRAINED 350CC OF TEA COLORED URINE. PT REMAINS AFIB WITH RATE >100; HOWEVER, WHILE SLEEPING RATE WAS IN THE 80'S. PT WORE CPAP MOST OF THE NIGHT WITH 2L BLEED IN. WHEN OFF CPAP PT IS AT 4L OF OXYGEN WITH SPO2 >90%. LUNG SOUNDS REMAIN WITH EXPIRATORY WHEEZES NOTED T/O. ABDOMEN REMAINS SEVERLY DISTENDED WITH ABSENT BOWEL TONES. WILL CONTINUE TO MONITOR UNTIL REPORT IS HANDED OFF TO ONCOMING RN.
--- NOTE | 2021-02-04 08:00 | NUR ---
Pt. is awake and alert. Oriented to self and family but confused about current condition. Denies pain. Blood Pressure adeq on levophed.Rectal tube cont with watery brownish stool.
[2021-02-04 08:09] LABS: HBSAG SCREEN Negative (Negative); HEP A AB, IGM Negative (Negative); HEP B CORE AB, IGM Negative (Negative); HEP C VIRUS AB <0.1 (0.0-0.9)
--- NOTE | 2021-02-04 11:10 | NUR ---
Dialysis in progress and is tolerating well.
--- NOTE | 2021-02-04 17:19 | NUR ---
Pt's confusion is clearing past precedex stopped. Wrist restr. removed at this time. Tolerated dialysis today and will hold for tomorrow at this point. Ivf increased to 75ml/hr. Emely PO fluidss. Urine output cont decreased with old blood sediment in urine. Rectal tube in place with sm amt. output. has denied pain t/o day. Emely. sitting in chair for 2 1/2 hrs. Levophed titrated down to 6 mcg at this time.
--- NOTE | 2021-02-04 19:15 | NUR ---
02/04/21 Patient remains in ICU, confused, no ETA for discharge today per Dr Nelson. Will follow for discharge planning. cp
--- NOTE | 2021-02-05 | NUR ---
AGITATION / PAIN / NGT: PT BECOMING MUCH MORE AGITATED, PULLING @ VS EQUIP & SHOULDER IMMOBILIZER. SEVERAL ATTEMPTS @ REORIENTING PT UNSUCCESSFUL. PT IS ADAMANT THAT HE STAND & "LET MY FEET TOUCH THE FLOOR". AFTER PULLING OFF HIS GOWN & MONITOR LEADS, PT REFUSED TO LET GO OF THE CORDS. TELLING RN "GET OUT OF HERE. DON'T TOUCH ME AND LEAVE ME ALONE" & ATTEMPTS TO GET OUT OF BED. PRECEDEX TITRATED UP INCREMENTALLY & NOW @ MAX OF 0.7mcg/kg/min. PT ALSO REPEATEDLY SPEAKS OF DYING & SELF-HARM. TELLING STAFF "GET ME A GUN & A KNIFE & LET ME BE DONE". REPORTS "MISERABLE PAIN EVERYWHERE". ABD IS NOTABLY DISTENEDED & FIRM. NAUSEA & DRY HEAVES CONTINUE AFTER ZOFRAN. DISCUSSED ALL THESE FINDINGS W/ HOSPITALIST ROSY. NEW ORDERS FOR IV COMPAZINE & NGT PLACEMENT TO LIS.
--- NOTE | 2021-02-05 00:30 | NUR ---
NGT PLACED W/ ASSISTANCE FROM АННА SAM. PT TOLERATED RELATIVELY WELL. 400ml OF WATERY, BILIOUS DRAINAGE IMMEDIATELY FILLED CANISTER UPON PLACEMENT & CONTINUES TO DRAIN. W/ INC NGT DRAINAGE, BP CONSISTENTLY TRENDING DOWN. LEVOPHED TITRATED UP ACCORDINGLY. PT NOW RESTING W/ EYES CLOSED, RR EVEN & UNLABORED.
--- NOTE | 2021-02-05 02:05 | NUR ---
NGT DRAINAGE APPEARS TO HAVE TAPERED OFF c APPROX 1,300ml DARK, BILIOUS, GRITTY & WATERY OUPUT SINCE PLACEMENT. PT APPEARS MORE COMFORTABLE & ABLE TO REST SOMEWHAT, NODDING IN AND OUT OF SLEEP. HE CONTINUES TO BE CONFUSED, CALLING OUT FOR "FRANK". UNSURE OF WHERE HE IS AND REFUSING TO PARTICIPATE IN ASSESSMENTS. BP STABILIZED W/ LEVOPHED @ 10mcg/min.
[2021-02-05 04:07] LABS: Hematocrit 19.9 % (37.0-53.0); Hemoglobin 6.9 g/dL (13.5-17.5); Mean Corpuscular HGB 31.8 pg (26.0-34.0); Mean Corpuscular HGB Conc 34.7 g/dL (31.5-36.5); Mean Corpuscular Volume 92 fL (80-100); Mean Platelet Volume 10.1 fL (9.1-12.4); NRBC ABSOLUTE 0.18 K/mm3 (0.00-0.02); NRBC Auto 0.9 /100 WBC (0.0-0.2); Platelet Count 146 K/mm3 (150-400); RDW Coefficient Variation 13.6 % (11.7-14.2); RDW Standard Deviation 46.2 fL (35.1-46.3); Red Blood Cell Count 2.17 M/mm3 (4.30-5.90); White Blood Cell Count 19.81 K/mm3 (4.00-11.30)
[2021-02-05 04:22] LABS: Albumin, Blood 2.2 g/dL (3.4-5.0); Anion Gap 5 mmol/L (6-16); Blood Urea Nitrogen 64 mg/dL (8-24); Bun/Creatinine Ratio 19.1 (12.0-20.0); CO2, Blood 30 mmol/L (21-32); Calcium, Blood 7.6 mg/dL (8.5-10.1); Chloride, Blood 98 mmol/L (98-108); Creatinine, Blood 3.35 mg/dL (0.60-1.20); Glomerular Filtration Rate 19 (60-); Glucose, Blood 114 mg/dL (70-99); Phosphorus, Blood 3.8 mg/dL (2.5-4.9); Potassium, Blood 3.2 mmol/L (3.5-5.5); Sodium, Blood 133 mmol/L (136-145)
[2021-02-05 05:55] LABS: BAND PERCENT MAN 4 % (0-8); BASOPHILS PERCENT MAN 0 % (0-2); EOSINOPHILS PERCENT MAN 0 % (0-6); LYMPHOCYTES ABSOLUTE MAN 0.99 K/mm3 (0.84-5.20); LYMPHOCYTES PERCENT MAN 5 % (21-46); METAMYELOCYTE ABSOLUTE MAN 0.99 K/mm3 (0.00-0.00); METAMYELOCYTE PERCENT MAN 5 % (0-0); MONOCYTES ABSOLUTE MAN 0.99 K/mm3 (0.16-1.47); MONOCYTES PERCENT MAN 5 % (4-13); MYELOCYTE ABSOLUTE MAN 1.18 K/mm3 (0.00-0.00); MYELOCYTE PERCENT MAN 6 % (0-0); NEUTROPHILS ABSOLUTE MAN 15.64 K/mm3 (1.96-9.15); SEG NEUTROPHILS PERCENT MAN 75 % (41-73); TOTAL CELLS COUNTED 100
--- NOTE | 2021-02-05 06:56 | NUR ---
SHIFT SUMMARY: PT CONTINUES TO BE CONFUSED, HOWEVER NOW PLEASANT & COOPERATIVE. PRECEDEX 0.4mcg/kg/hr, LEVOPHED 6mcg/min. NGT SECURE & DRAINING ONLY SCANT AMT OF THE SAME BILIOUS, WATERY, GRITTY OUTPUT. ABD STILL QUITE FIRM, THOUGH SLIGHTLY IMPROVED AFTER DECOMPRESSION & NO C/O NAUSEA OR EMESIS. SCANT AMT OF OUTPUT FROM RECTAL TUBE. WILL CONTINUE TO MONITOR UNTIL REPORT OFF TO ONCOMING RN.
--- NOTE | 2021-02-05 08:00 | NUR ---
ASSUMED CARE: REPORT RECEIVED FROM MAGDALENA Gaona RN. ASSUMED CARE OF THIS PT AT APPROX 0700. ON ASSESSMENT, THE PT IS RESTING QUIETLY W/ PRECEDEX INFUSING AT 0.3 MCG/KG/HR. HE AWAKENS EASILY & IS REQUESTING SIPS OF WATER AT THAT TIME. WHEN INFORMED THAT HE IS CURRENTLY NPO, HE SIGHS & RESUMES SLEEPING. PT ON 3L NC W/ O2 SATS > 92%. MONITOR SHOWS AFIB W/ HR 90-100s, LEVOPHED INFUSING AT 8 MCG/MIN FOR HYPOTENSION. WATT PATENT/ DRAINING DARK YELLOW URINE, OUTPUT IMPROVING. RECTAL TUBE IN PLACE DRAINING DARK BROWN LIQUID STLS. SKIN CONDITION OVERALL INTACT, SURGICAL SITE TO R SHOULDER W/ DRESSING CDI, SMALL AMNT OF DRIED SANGUINOUS DRAINAGE NOTED IS UNCHANGED, PER REPORT. VARIOUS AREAS OF SCATTERED ECCHYMOSIS NOTED. WILL CONTINUE TO MONITOR & UPDATE NEEDED.
--- NOTE | 2021-02-05 11:00 | NUR ---
DR CORONA: PROVIDER AT BEDSIDE TO EVAL PT. HE WOULD LIKE LEVOPHED TO BE TITRATED DOWN PT TOLERATES. ORDERS PLACED FOR CALCIUM CHLORIDE & ONE UNIT OF BLOOD TO BE ADMINISTERED.
--- NOTE | 2021-02-05 11:57 | NUR ---
DR COPE: PROVIDER AT BEDSIDE TO EVAL PT THIS AM. NO CHANGES AT THIS TIME. SHE HAS VERIFIED THAT THE PT WILL BE RECEIVING ONE UNIT OF BLOOD & CALCIUM REPLETION.
--- NOTE | 2021-02-05 16:12 | NUR ---
02/05/21- PER CHART REVIEW, PT IS STILL IN ICU. HE WAS MORE AGITATED FIELD CROP FARMER AND PULLING AT LINES AND MONITORS. STAFF WERE ABLE TO STABLIZE THE PT AND PT BECAUSE MORE PLEASANT THE DAY PROGRESSED. DR. FORMAN IS TO MONITOR PT AND DETERMINE IF/WHEN HE WILL NEED DIALYSIS. NO PLAN FOR D/C AT THIS TIME. -KARINA
--- NOTE | 2021-02-05 19:46 | NUR ---
SHIFT SUMMARY: NO ACUTE CHANGES SINCE PRIOR UPDATES. THE PT REMAINS ALERT TO SELF, FOLLOWING DIRECTIONS, PLACE & PERSON. HE HAS BEEN PLEASANT W/ STAFF THIS AFTERNOON & L WRIST RESTRAINT HAS BEEN REMOVED AT 1400. THE PT IS TOLERATING THIS WELL & VERALIZES THE IMPORTANCE OF NOT PULLING AT LINES/ TUBES. PRECEDEX OFF SINCE APPROX 1630. PT ON 2L NC W/ O2 SATS > 92%. MONITOR SHOWS AFIB W/ HR 90-100s. BP STABLE W/ LEVOPHED OFF SINCE APPROX 1430. THE PT HAS C/O THIRST & IS TOLERATING SMALL SIPS OF WATER TO ALLEVIATE "DRY MOUTH." OGT CONTINUES TO LIS W/ SCANT OUTPUT NOTED IN TUBING BUT NO NEW OUTPUT NOTED IN CANISTER TO COUNT. WATT PATENT/ DRAINING DARK YELLOW URINE. SKIN CONDITION OVERALL ECCHYMOTIC, INTACT. Q2H REPOSITIONING TO MAINTAIN SKIN INTEGRITY. REPORT GIVEN TO ONCOMING RN TO ASSUME CARE.
[2021-02-06 03:56] LABS: BASOPHILS ABSOLUTE AUTO 0.12 K/mm3 (0.00-0.23); BASOPHILS PERCENT AUTO 1 % (0-2); Hematocrit 22.9 % (37.0-53.0); Hemoglobin 8.1 g/dL (13.5-17.5); LYMPHOCYTES ABSOLUTE AUTO 0.85 K/mm3 (0.84-5.20); LYMPHOCYTES PERCENT AUTO 4 % (21-46); MONOCYTES ABSOLUTE AUTO 1.19 K/mm3 (0.16-1.47); MONOCYTES PERCENT AUTO 6 % (4-13); Mean Corpuscular HGB 32.1 pg (26.0-34.0); Mean Corpuscular HGB Conc 35.4 g/dL (31.5-36.5); Mean Corpuscular Volume 91 fL (80-100); Mean Platelet Volume 9.9 fL (9.1-12.4); NRBC ABSOLUTE 0.13 K/mm3 (0.00-0.02); NRBC Auto 0.6 /100 WBC (0.0-0.2); Platelet Count 150 K/mm3 (150-400); RDW Coefficient Variation 14.6 % (11.7-14.2); RDW Standard Deviation 48.8 fL (35.1-46.3); Red Blood Cell Count 2.52 M/mm3 (4.30-5.90); White Blood Cell Count 20.78 K/mm3 (4.00-11.30)
[2021-02-06 03:57] LABS: EOSINOPHILS ABSOLUTE AUTO 0.03 K/mm3 (0.00-0.68); EOSINOPHILS PERCENT AUTO 0 % (0-6); IMMATURE GRAN ABSOLUTE AUTO 4.27 K/mm3 (0.00-0.10); IMMATURE GRAN PERCENT AUTO 21 % (0-1); NEUTROPHILS ABSOLUTE AUTO 14.32 K/mm3 (1.96-9.15); NEUTROPHILS PERCENT AUTO 69 % (41-73)
[2021-02-06 04:13] LABS: BAND PERCENT MAN 7 % (0-8); BASOPHILS PERCENT MAN 0 % (0-2); EOSINOPHILS PERCENT MAN 0 % (0-6); LYMPHOCYTES ABSOLUTE MAN 0.62 K/mm3 (0.84-5.20); LYMPHOCYTES PERCENT MAN 3 % (21-46); METAMYELOCYTE ABSOLUTE MAN 0.41 K/mm3 (0.00-0.00); METAMYELOCYTE PERCENT MAN 2 % (0-0); MONOCYTES ABSOLUTE MAN 0.83 K/mm3 (0.16-1.47); MONOCYTES PERCENT MAN 4 % (4-13); MYELOCYTE ABSOLUTE MAN 0.41 K/mm3 (0.00-0.00); MYELOCYTE PERCENT MAN 2 % (0-0); NEUTROPHILS ABSOLUTE MAN 18.28 K/mm3 (1.96-9.15); PROMYELOCYTE PERCENT MAN 1 % (0-0); SEG NEUTROPHILS PERCENT MAN 81 % (41-73); TOTAL CELLS COUNTED 100
[2021-02-06 04:17] LABS: Albumin, Blood 2.1 g/dL (3.4-5.0); Anion Gap 6 mmol/L (6-16); Blood Urea Nitrogen 67 mg/dL (8-24); Bun/Creatinine Ratio 24.6 (12.0-20.0); CO2, Blood 27 mmol/L (21-32); Calcium, Blood 8.2 mg/dL (8.5-10.1); Chloride, Blood 104 mmol/L (98-108); Creatinine, Blood 2.72 mg/dL (0.60-1.20); Glomerular Filtration Rate 24 (60-); Glucose, Blood 88 mg/dL (70-99); Magnesium, Blood 1.8 mg/dL (1.6-2.4); Phosphorus, Blood 3.8 mg/dL (2.5-4.9); Potassium, Blood 3.4 mmol/L (3.5-5.5); Sodium, Blood 137 mmol/L (136-145)
--- NOTE | 2021-02-06 06:00 | NUR ---
END OF SHIFT SUMMARY: PATIENT A/O X4 WITH NO CONFUSION OVERNIGHT. PATIENT VERY PLEASANT AND POLITE AND WILL CALL WHEN NEEDS HELP. PATIENT REMAINS IN AFIB, ROOM AIR, AND BP REMAINS STABLE OFF LEVOPHED. NG REMAINS TO LIS BUT REQUESTS WATER PERIODICALLY. SIPS/CHIPS GIVEN A FEW TIMES FOR COMFORT AND NO COUGHING/BURPING NOTED.
--- NOTE | 2021-02-06 07:30 | NUR ---
Received report from Noc RN. Patient awake in bed and is able to communicate his needs. He is on RA and sats >90%. He has R shoulder imobilizer in blace with bruising from shoulder to hip and well and right eye. He has trialysis cath to WYJ.He has 20ga IV to Left shoulder infusing NS TKO. He has rectal tube in place and has liquid brown stool. He has 16Fr Mora draining to gravity yellow urine in adequate amounts. He has NG to right nares on LIS with no output. He is in A-fib rates in the 90's and systolics 120's.
--- NOTE | 2021-02-06 09:30 | NUR ---
Dr Nelson and Dr Wyman in room with patient. We are starting him on ice chips and a K rider. We will wait to see if he tolerates ice chips before removing NG. He is no PCU status. No dialysis today. He remains on RA and sats >90%.
--- NOTE | 2021-02-06 11:30 | NUR ---
Patient tolerate am weds with juice and then stated needed tums for indigestion.Patient remains on RA and is alert and oriented, able to communicate his needs. He has called several times for position change. He denies any current needs.
--- NOTE | 2021-02-06 16:00 | NUR ---
Patient reassessed by Dr Wyman and he asked for NG in right nares to be puulled and student nurse pulled and he tolerated well. He has been tolerating liquids well and Dr Wyman dc'd NS at 50ml/hr. at bedside. Patient remains on RA and sats >90%. Patient has 2000 ml's light yoanna colored urine.
--- NOTE | 2021-02-06 16:31 | NUR ---
02/06/21- per chart review with Dr. Nelson, pt has improved and is able to communicate his needs. Dr. Nelson plans on moving pt from ICU to medical floor. No plan for d/c at this time. -stas
--- NOTE | 2021-02-06 18:00 | NUR ---
Patient tolerated liq. gave patient bed bath and changed linen. He is alert and oriented and is able to communicate his needs. He remains on RA and sats >90%. He has NS TKO infusing through trialysis cath. Right shoulder imobilizer in place. was by and stayed for a little bit, tried to get a hold of Dr Peña per Dr Wyman for family as he has been following his stomach issues.
--- NOTE | 2021-02-06 22:47 | NUR ---
CARE ASSUMPTION PT IS PCU STATUS. A/O X4. VSS. TELE AFIB 90S-110. PT ON RA. PT USES CPAP AT BEDTIME WITH 2L O2. PT CATHETER IN PLACE. PT RECTAL TUBE IS IN PLACE. PT RIGHT ARM IS IN A IMMBOLIZER. PT HAS BRUISING T/O UPPER EXTREMEITIES & RIGHT EYEBROW. PT HAS A DISTENDED FIRM ADB WITH NO PAIN UPON PALPATION.
[2021-02-07 03:37] LABS: Hematocrit 24.7 % (37.0-53.0); Hemoglobin 8.6 g/dL (13.5-17.5); Mean Corpuscular HGB 31.7 pg (26.0-34.0); Mean Corpuscular HGB Conc 34.8 g/dL (31.5-36.5); Mean Corpuscular Volume 91 fL (80-100); NRBC ABSOLUTE 0.03 K/mm3 (0.00-0.02); NRBC Auto 0.2 /100 WBC (0.0-0.2); RDW Coefficient Variation 14.7 % (11.7-14.2); RDW Standard Deviation 49.2 fL (35.1-46.3); Red Blood Cell Count 2.71 M/mm3 (4.30-5.90); White Blood Cell Count 18.46 K/mm3 (4.00-11.30)
[2021-02-07 03:38] LABS: Mean Platelet Volume 10.3 fL (9.1-12.4); Platelet Count 152 K/mm3 (150-400)
[2021-02-07 03:50] LABS: Bun/Creatinine Ratio 28.8 (12.0-20.0); Calcium, Blood 8.5 mg/dL (8.5-10.1); Creatinine, Blood 2.43 mg/dL (0.60-1.20); Potassium, Blood 3.5 mmol/L (3.5-5.5)
[2021-02-07 03:54] LABS: BAND PERCENT MAN 3 % (0-8); BASOPHILS PERCENT MAN 0 % (0-2); EOSINOPHILS PERCENT MAN 0 % (0-6); LYMPHOCYTES ABSOLUTE MAN 1.29 K/mm3 (0.84-5.20); LYMPHOCYTES PERCENT MAN 7 % (21-46); METAMYELOCYTE ABSOLUTE MAN 0.36 K/mm3 (0.00-0.00); METAMYELOCYTE PERCENT MAN 2 % (0-0); MONOCYTES ABSOLUTE MAN 1.47 K/mm3 (0.16-1.47); MONOCYTES PERCENT MAN 8 % (4-13); MYELOCYTE ABSOLUTE MAN 0.36 K/mm3 (0.00-0.00); MYELOCYTE PERCENT MAN 2 % (0-0); NEUTROPHILS ABSOLUTE MAN 14.95 K/mm3 (1.96-9.15); SEG NEUTROPHILS PERCENT MAN 78 % (41-73); TOTAL CELLS COUNTED 100
--- NOTE | 2021-02-07 04:26 | NUR ---
SHIFT SUMMARY A/O X4. VSS. SPO2 >95% ON CPAP 2L FOR SLEEP AND RA WHEN NOT SLEEPING . MONITOR SHOWING AFIB 90S-110S. NO ACUTE CHANGES DURNG THE SHIFT. WILL CONTINUE TO MONITOR AND PROVIDE CARE UNTIL REPORT WITH DAY SHIFT.
--- NOTE | 2021-02-07 04:41 | NUR ---
ENAMEL FINISHER DOCUMENTATION THIS RN AGREES W/ STUDENT NURSE DOCUMENTATION THIS SHIFT.
--- NOTE | 2021-02-07 08:15 | NUR ---
INITIAL ASSESSMENT PATIENT ALERT AND ORIENTED X 4. PATIENT DOES APPEAR FORGETFUL AT TIMES. PATIENT GAMBELL. PATIENT HAS TEMP OF 99.6 DEGREES FAHRENHEIT. R SHOULDER IN IMMOBILIZER AFTER RECENT SHOULDER SURGERY. PATIENT SATTING 90% AND GREATER ON RA. PATIENT WEARS CPAP WITH 2 L NC BLEED IN WHEN SLEEPING. EXPIRATORY WHEEZES NOTED T/O ALL LUNG LOBES. PATIENT REPORTS OCCASIONAL COUGH THAT IS PRODUCING SMALL AMOUNT OF THICK, CASTRO SPUTUM. PATIENT OCCASIONAL TACHYPNEIC AND SOB. PATIENT IN A. FIB/ A. FLUTTER. HR 90S TO 1-TEENS. SBP IN THE 130S. BILAT FOOT PULSES FAINT. 2+ EDEMA NOTED IN BLES. ABDOMEN MODERATELY DISTENDED, FIRM, WITH NORMOACTIVE BS. RECTAL TUBE IN PLACE, DRAINING LIQUID, BROWN STOOL. PATIENT ON CLEAR LIQUID DIET. WATT IN PLACE DRAINING YELLOW COLORED URINE. SCATTERED BRUISES NOTED T/O BODY. PATIENT BEING REPOSITIONED Q2H AND PRN. BED LOW, CALL LIGHT IN REACH. WILL CONTINUE TO MONITOR PATIENT FREQUENTLY THROUGHOUT SHIFT.
--- NOTE | 2021-02-07 11:00 | NUR ---
DR. COPE HERE TO SEE PATIENT. UPDATED ON PATIENT STATUS. INFORMED PATIENT HAS TEMP OF 99.6 DEGREES FAHRENHEIT THIS AM. ORDERS RECEIVED.
--- NOTE | 2021-02-07 12:00 | NUR ---
PATIENT HAS NO COMPLAINTS OF PAIN. PATIENT UP IN CHAIR. SBP 1-TEENS TO 130S. PATIENT ON FULL LIQUID DIET. NO OTHER ACUTE CHANGES TO NOTE ON AT THIS TIME. WILL CONTINUE TO MONITOR.
--- NOTE | 2021-02-07 15:11 | NUR ---
SHIFT SUMMARY PATIENT HAS REMAINED ALERT AND ORIENTED. FORGETFUL AT TIMES. PATIENT PLEASANT AND COOPERATIVE. PATIENT [place]. PATIENT HAD TMAX OF 99.6 THIS AM, HOWEVER SUN WAS BLARING THROUGH WINDOW. PATIENT AFEBRILE SINCE. PATIENT UP TO CHAIR WITH LIFT. OCCUPATIONAL THERAPY HAS WORKED WITH PATIENT AND STATES WILL NEED A SNF AT DISCHARGE. STATES PATIENT WORN OUT AFTER STANDING FOR 20 SECONDS. R ARM REMAINS IN SLING. PATIENT HAS REMAINED SATTING 90% AND GREATER ON RA. EXP WHEEZES NOTED T/O. PATIENT HAS REMAINED IN A. FIB/ A. FLUTTER, HR 90S TO 1-TEENS. SBP 1-TEENS TO 130S. PITTING EDEMA REMAINS TO BLES. RECTAL TUBE DRAINED 400 MLS OF BROWN, LIQUID STOOL. WATT DRAINED 1500 MLS OF URINE. NO CHANGES IN SKIN. PATIENT REPOSITIONED Q2H AND PRN. PATIENT RECEIVED SCHEDULED ZOSYN. TRIAYLSIS CATHETER DRESSING CHANGED THIS SHIFT. , IAIN AT BEDSIDE. PATIENT TO TRANSFER TO MEDICAL FLOOR SHORTLY.
--- NOTE | 2021-02-07 15:38 | NUR ---
PATIENT TRANSFERRED TO MEDICAL FLOOR, ROOM 334. AT BEDSIDE. ALL BELONGINGS SENT WITH PATIENT.
--- NOTE | 2021-02-07 15:48 | NUR ---
02/07/21- per chart review with Dr. Nelson, pt is continuing to improve and he was transferred to medical floor today. PT and OT have been ordered. OT saw pt and is recommending SNF. PT note is still outstanding. No d/c plan at this time. -stas
--- NOTE | 2021-02-07 16:14 | NUR ---
PT TRANSFERRED TO ROOM 334 FROM ICU. SETTLED IN TO BED AND WATER GIVEN. AT BEDSIDE AT THIS TIME. HAS AN IMMOBILIZER ON R ARM. RECTAL TUBE AND WATT IN PLACE. A/OX4. CONTINUOUS PULSE OX IN PLACE AND FUNCTIONING.
--- NOTE | 2021-02-07 17:48 | NUR ---
SHIFT SUMMARY PT REPORTING INCREASED DISCOMFORT TO R ELBOW UNDER HIS IMMOBILIZER. IMMOBILIZER LOOSENED AND CHECKED SKIN ON ELBOW. REDNESS BUT NO OPEN AREAS. MEPILEX APPLIED FOR COMFORT AND PT STATED IT FELT BETTER. NO OTHER CHANGE TODAY. WILL REPORT CONDITION TO ONCOMING SHIFT.
--- NOTE | 2021-02-07 22:06 | NUR ---
ASSUMPTION OF CARE. AOX3, COOPERATIVE. CHANGED TO LIFT ROOM FROM ROOM 334. RIGHT ARM BRUISING FROM NECK DOWN TO FINGERS. EDEMA WELL. ABLE TO WIGGLE ALL FINGERS, NO N/T. GOOD CAP REFILL. IJ TO RIGHT SIDE WITH DIALYSIS PORT. BRUISING WELL AROUND. PORT FLUSHED AND ANTIBOTIC GIVEN. BLE EDEMA FROM TOES TO KNEES 3+. ELEVATED ON PILLOWS. WTAT DRAINING MEDIUM COLOR YELLOW. RECTAL TUBE WITH LIQUID BROWN STOOL. PLACED ON CPAP WITH 2 LITER BLEED IN. SATS >90%. HR AFIB, RUNNING 110'S. WILL CONTINUE TO MONITOR. CALL LIGHT IS IN REACH.
--- NOTE | 2021-02-08 04:38 | NUR ---
SHIFT SUMMARY: AOX3. VS WITH IN HIS NORMAL LIMITS. OCCATIONAL TACHYCARDIA OF LOW 100'S. LUNG SOUNDS DIMINISHED. TELE-AFIB. 3+ EDEMA IN BLE UP TO KNEES. 1-2+ IN BUE. 1000 OUTPUT FROM CATHETER, 150CC OF LOOSE STOOL IN RECTAL TUBE. RIGHT SHOULDER DRESSING CDI. REPORT OF PAIN IN RIGHT ELBOW FROM RUBBING IN SLING. WE HAVE TRIED FOAM DRESSING BUT STILL DID NOT RELIEVE THE PAIN. ALLOWED SLING TO BE OPEN ALLOWING ARM TO STRAIGHTEN AT ELBOW ONLY. IMPROVEMENT IN PAIN NOTED. IJ STILL IN PLACE AND WORKING WELL. BRUISING TO RIGHT SIDE OF NECK AROUND IJ AND FROM RIGHT SHOULDER DOWN. ENCOURAGED HIM TOMOVE LEGS IN BED TO IMPROVE CIRCULATION. SLEPT OFF AND ON USING CPAP. SATS REMAINED ABOVE 90%. CALL LIGHT IN REACH AND USED APPROPRIATLY.
[2021-02-08 04:40] LABS: Hematocrit 24.4 % (37.0-53.0); Hemoglobin 8.3 g/dL (13.5-17.5); Mean Corpuscular Volume 94 fL (80-100); RDW Standard Deviation 50.8 fL (35.1-46.3); Red Blood Cell Count 2.59 M/mm3 (4.30-5.90); White Blood Cell Count 14.92 K/mm3 (4.00-11.30)
[2021-02-08 04:44] LABS: Mean Platelet Volume 10.2 fL (9.1-12.4); Platelet Count 122 K/mm3 (150-400)
[2021-02-08 04:56] LABS: Bun/Creatinine Ratio 32.3 (12.0-20.0); Calcium, Blood 8.1 mg/dL (8.5-10.1); Creatinine, Blood 2.2 mg/dL (0.60-1.20)
[2021-02-08 05:04] LABS: BAND PERCENT MAN 1 % (0-8); BASOPHILS PERCENT MAN 0 % (0-2); EOSINOPHILS PERCENT MAN 0 % (0-6); LYMPHOCYTES ABSOLUTE MAN 0.59 K/mm3 (0.84-5.20); LYMPHOCYTES PERCENT MAN 4 % (21-46); METAMYELOCYTE ABSOLUTE MAN 0.14 K/mm3 (0.00-0.00); METAMYELOCYTE PERCENT MAN 1 % (0-0); MONOCYTES ABSOLUTE MAN 0.29 K/mm3 (0.16-1.47); MONOCYTES PERCENT MAN 2 % (4-13); MYELOCYTE ABSOLUTE MAN 0.14 K/mm3 (0.00-0.00); MYELOCYTE PERCENT MAN 1 % (0-0); NEUTROPHILS ABSOLUTE MAN 13.72 K/mm3 (1.96-9.15); SEG NEUTROPHILS PERCENT MAN 91 % (41-73); TOTAL CELLS COUNTED 100
--- NOTE | 2021-02-08 13:32 | NUR ---
02/08/21- per chart review, pt's renal failure has improved but has bilateral lower ext. edema. It is noted that pt lives in a [facility] pires with his . PT and OT are suggesting that pt go to SNF at discharge. Source of sepsis is still not identified. No plan of d/c at this time. -stas
--- NOTE | 2021-02-08 18:08 | NUR ---
SHIFT SUMMARY PT AOX3. DC'D THE WATT AND RECTAL TUBE TODAY; PT HAD SEVERAL LOOSE DARK BOWEL MOVEMENTS TODAY; PT GIVEN IMODIUM PRN. PT REFUSED PAIN MEDICATIONS THIS SHIFT. WAS AT BEDSDIDE TODAY. PT TAKES MEDICATIONS WHOLE WITH APPLESAUCE. ENCOURAGE THE PT TO USE CPAP WHEN SLEEPING. PT USES URINAL. BED IS IN THE LOWEST POSITION AND CALL LIGHT WITHIN REACH
--- NOTE | 2021-02-08 23:00 | NUR ---
ASSUMPTION OF CARE. REPOSITIONED PATIENT WITH LIFT. BM ARE STILL WATER BROWN STOOL. GAVE IMMODIUM. BOTTOM GETTING RED FROM THEM. APPLIED BARRIER CREAM. ARM BACK IN SLING FROM RESTING. PAIN ONLY WHEN RIGHT SHOULDER IS MOVED. BLE EDEMA 3+ SATS >90% ON CONTINUOUS PULSE OX. DISCUSSED WITH HIM THE NEED TO GET UP OUT OF BED HE SAID HE IS NOT READY FOR THAT YET. MEDS GIVEN PER EMAR. CPAP PLACED. NOW SLEEPING. CALL LIGHT IS IN REACH.
[2021-02-09 05:27] LABS: BASOPHILS ABSOLUTE AUTO 0.01 K/mm3 (0.00-0.23); BASOPHILS PERCENT AUTO 0 % (0-2); EOSINOPHILS ABSOLUTE AUTO 0.03 K/mm3 (0.00-0.68); EOSINOPHILS PERCENT AUTO 0 % (0-6); Hematocrit 23.7 % (37.0-53.0); Hemoglobin 7.9 g/dL (13.5-17.5); IMMATURE GRAN ABSOLUTE AUTO 0.37 K/mm3 (0.00-0.10); IMMATURE GRAN PERCENT AUTO 4 % (0-1); LYMPHOCYTES ABSOLUTE AUTO 0.81 K/mm3 (0.84-5.20); LYMPHOCYTES PERCENT AUTO 8 % (21-46); MONOCYTES ABSOLUTE AUTO 0.65 K/mm3 (0.16-1.47); MONOCYTES PERCENT AUTO 7 % (4-13); Mean Corpuscular HGB 31.6 pg (26.0-34.0); Mean Corpuscular HGB Conc 33.3 g/dL (31.5-36.5); Mean Corpuscular Volume 95 fL (80-100); NEUTROPHILS ABSOLUTE AUTO 8.05 K/mm3 (1.96-9.15); NEUTROPHILS PERCENT AUTO 81 % (41-73); RDW Standard Deviation 51.5 fL (35.1-46.3); White Blood Cell Count 9.92 K/mm3 (4.00-11.30)
[2021-02-09 05:42] LABS: Mean Platelet Volume 10.5 fL (9.1-12.4); Platelet Count 146 K/mm3 (150-400)
[2021-02-09 06:02] LABS: Albumin/Globulin Ratio 0.7 (0.8-1.8); Bilirubin, Total 0.5 mg/dL (0.1-1.0); Bun/Creatinine Ratio 31.8 (12.0-20.0); Calcium, Blood 7.9 mg/dL (8.5-10.1); Creatinine, Blood 2.01 mg/dL (0.60-1.20); Globulin, Blood 2.9 g/dL (2.2-4.0); Potassium, Blood 4.5 mmol/L (3.5-5.5); Total Protein, Blood 4.9 g/dL (6.4-8.2)
--- NOTE | 2021-02-09 06:46 | NUR ---
SHIFT SUMMARY: ENCOURAGED MORE MOVEMENT AND TALKED ABOUT GETTING UP TO BSC. HE SAID HE WILL WAIT TILL PT GETS HIM UP THAT HE IS NOT READY FOR IT. BRUISING ON RIGHT SIDE IS HEALING. EDEMA IN THE LEGS, TRUNK AND BUE HAVE DECREASED SLIGHTLY. ENCOURAGED HIM TO DO ROM EXERCISES. 5 WATER LIQUID STOOLS THIS SHIFT, VERY DARK BROWN, LAST ONE DID HAVE SOME CHUNKS IN IT. BOTTOM IS GETTING RED AND TENDER, BARRIER CREAM APPLIED. LUNG DIMINISHED, SOB OFF AND ON. CPAP WITH BLEED IN OF 2 LITERS. SATS REMAIN ABOVE 90. CENTRAL LINE DID NOT DRAW THIS AM BUT DID FLUSH WELL. IV ANTIBOTICS GIVEN. INCONTIENT OF URINE. NO OTHER CHANGES TO REPORT. CALL LIGHT IN REACH.
--- NOTE | 2021-02-09 11:17 | NUR ---
HERE TO SEE PATIENT
--- NOTE | 2021-02-09 11:24 | NUR ---
DRESSING TO RT SHLDR TAKEN OFF BY AND REPLACED WITH LARGE TEGADERM. TO LEAVE TEGADERM ON TILL F/U WITH ORTHO IN [place].
[2021-02-09 11:25] LABS: Adenovirus F 40/41 Not Detected (NOT DETECT); Astrovirus Not Detected (NOT DETECT); Campylobacter Sp Not Detected (NOT DETECT); Cryptosporidium Not Detected (NOT DETECT); Cyclospora Cayetanensis Not Detected (NOT DETECT); E. Coli O157 Not Detected (NOT DETECT); Entamoeba Histolytica Not Detected (NOT DETECT); Enteroaggregative E. coli-EAEC Not Detected (NOT DETECT); Enteropathogenic E. coli-EPEC Not Detected (NOT DETECT); Enterotoxigenic E. coli-ETEC Not Detected (NOT DETECT); Giardia Lamblia Not Detected (NOT DETECT); Norovirus GI/GII Not Detected (NOT DETECT); Plesiomonas Shigelloides Not Detected (NOT DETECT); Rotavirus A Not Detected (NOT DETECT); Salmonella Sp Not Detected (NOT DETECT); Sapovirus Not Detected (NOT DETECT); Shiga Toxin-prod E. coli-STEC Not Detected (NOT DETECT); Shigella/Enteroin E. coli-EIEC Not Detected (NOT DETECT); Vibrio Cholerae Not Detected (NOT DETECT); Vibrio Sp Not Detected (NOT DETECT); Yersinia Enterocolitica Not Detected (NOT DETECT)
--- NOTE | 2021-02-09 17:17 | NUR ---
ALERT. ORIENTED. ONE PERSON ASSIST TO BSC. DIARRHEA HAS SLOWED A LITTLE. POOR APPETITE. BRUISING RT SIDE POST SHLDR SURGERY. SURGICAL SITE RT SHLDR LOOKED DRY, INTACT WITH NO SIGNS OF INFECTION. EDEMA LEFT ARM WITH SOME WEEPING. ELEVATED ON PILLOWS W/PATIENT ADVISED NEEDS TO LEAVE IT ELEVATED. REDNESS TO BOTTOM FROM DIARRHEA WITH CALAZINE APPLIED. DIARRHEA DARK BROWN IN COLOR. PATIENT STS COUGHS AFTER DRINKING WATER BUT NOT WITH OTHER THIN LIQUIDS ; SUCH , APPLE JUICE OR COFFEE. TELE HAS BEEN AFIB BETWEEN 100-110 PER NURSING UNIT COORDINATOR. WCTM.
--- NOTE | 2021-02-09 18:38 | NUR ---
PER DR. FORMAN OK TO TAKE OUT IJ RT SIDE OF NECK AFTER PERIPHERAL LINE ESTABLISHED.
--- NOTE | 2021-02-09 19:02 | NUR ---
DID UNDO DO TO CHARTING ON WRONG PT.
[2021-02-10 05:21] LABS: BASOPHILS ABSOLUTE AUTO 0.01 K/mm3 (0.00-0.23); BASOPHILS PERCENT AUTO 0 % (0-2); EOSINOPHILS ABSOLUTE AUTO 0.11 K/mm3 (0.00-0.68); EOSINOPHILS PERCENT AUTO 2 % (0-6); Hematocrit 23.6 % (37.0-53.0); Hemoglobin 7.7 g/dL (13.5-17.5); IMMATURE GRAN ABSOLUTE AUTO 0.12 K/mm3 (0.00-0.10); IMMATURE GRAN PERCENT AUTO 2 % (0-1); LYMPHOCYTES ABSOLUTE AUTO 0.86 K/mm3 (0.84-5.20); LYMPHOCYTES PERCENT AUTO 12 % (21-46); MONOCYTES ABSOLUTE AUTO 0.57 K/mm3 (0.16-1.47); MONOCYTES PERCENT AUTO 8 % (4-13); Mean Corpuscular HGB 31.8 pg (26.0-34.0); Mean Corpuscular HGB Conc 32.6 g/dL (31.5-36.5); Mean Corpuscular Volume 98 fL (80-100); NEUTROPHILS ABSOLUTE AUTO 5.58 K/mm3 (1.96-9.15); NEUTROPHILS PERCENT AUTO 77 % (41-73); NRBC ABSOLUTE 0.02 K/mm3 (0.00-0.02); NRBC Auto 0.3 /100 WBC (0.0-0.2); RDW Coefficient Variation 15.1 % (11.7-14.2); RDW Standard Deviation 53.5 fL (35.1-46.3); Red Blood Cell Count 2.42 M/mm3 (4.30-5.90); White Blood Cell Count 7.25 K/mm3 (4.00-11.30)
--- NOTE | 2021-02-10 05:34 | NUR ---
SHIFT SUMMARY LYING IN SEMI FOWLERS WITH EYES OPEN WHILE WATCHING TV IN ROOM, HAS RESTED OFF AND ON. WEAK PULSES TO BLE, CAP REFILL <3 SEC, LIMITED TOUSSAINT. PAIN MANAGED PER EMAR. HAS HAD SEVERAL SMALL BM'S THAT ARE GELATINOUS. LAST ONE SMELLED IF IT MIGHT CONTIAN MELANIN. WILL CONTACT MD AND ONCOMING NURSE TO BE INFORMED. NO FURTHER SIGNIFICANT CHANGES NOTED THIS SHIFT. DENIES FURTHER NEEDS AT THIS TIME. SAFETY MEASURES IN PLACE. WILL CONTINUE TO MONITOR FOR CHANGES/NEEDS AND ADDRESS THEM THEY ARISE. WILL GIVE HAND OFF TO ONCOMING SHIFT USING SBAR DURING BEDSIDE REPORT.
[2021-02-10 05:56] LABS: Albumin, Blood 1.9 g/dL (3.4-5.0); Anion Gap 5 mmol/L (6-16); Blood Urea Nitrogen 54 mg/dL (8-24); Bun/Creatinine Ratio 27.6 (12.0-20.0); CO2, Blood 25 mmol/L (21-32); Calcium, Blood 7.6 mg/dL (8.5-10.1); Chloride, Blood 107 mmol/L (98-108); Creatinine, Blood 1.96 mg/dL (0.60-1.20); Glomerular Filtration Rate 35 (60-); Glucose, Blood 102 mg/dL (70-99); Magnesium, Blood 1.7 mg/dL (1.6-2.4); Phosphorus, Blood 3.3 mg/dL (2.5-4.9); Potassium, Blood 4.5 mmol/L (3.5-5.5); Sodium, Blood 137 mmol/L (136-145)
[2021-02-10 07:32] LABS: Mean Platelet Volume 10.9 fL (9.1-12.4); Platelet Count 235 K/mm3 (150-400)
--- NOTE | 2021-02-10 07:41 | NUR ---
DR SIEGEL IN TO SEE PT. DISCUSSED SENDING STOOL SAMPLE FOR OCCULT BLOOD, WILL LEAVE TO GI TO DECIDE.
--- NOTE | 2021-02-10 17:12 | NUR ---
SUMMARY NO ACUTE CHANGES T/O SHIFT. PT CONTINUES TO HAVE LOOSE BMS. MEDICATED PER ORDERS FOR PAIN TO RUE. ICE PLACED TO SHOULDER FOR COMFORT. IV ABX INFUSING PER ORDERS. UNSUCCESSFUL AT ESTABLISHING PERIPHERAL IV THIS SHIFT. DR SIEGEL GAVE ORDERS TO PLACE PICC IF UNABLE TO OBTAIN PERIPHERAL IV. PASSED INFO ON TO SECURITY TECH. PT RETAINING URINE; ORDERS ARE TO STRAIGHT CATH FOR PVR >400. CALL LIGHT IN REACH.
--- NOTE | 2021-02-11 07:53 | NUR ---
SUMMARY PT HAVING URINARY RETENTION TONIGHT. BLADDER SCAN WAS GREATER THAN 400 ML AND PT WAS STRAIGHT CATHED PER ORDERS.PT VERB RELIEF AFTER.NO OTHER ACUTE CHANGES.
--- NOTE | 2021-02-11 17:09 | NUR ---
SHIFT SUMMARY DR. JIMENEZ NOTIFIED OF GI CONSULT FOR PT THIS AM. DR. JIMENEZ STATED THAT HE WILL BE IN LATER IN THE DAY TO SEE THE PT. PT WORKED WITH OT AND WALKED TO THE BATHROOM TODAY WITH PHYSICAL THERAPY. SOB WITH EXERTION, BUT SATED WELL T/O THE EVENT. DR. GALLEGOS NOTIFIED OF THE PTS EXTREMITY SWELLING, 2 DOSES OF LASIX ORDERED AFTER THIS PHONE CALL. PT HAD ONE POST VOID BLADDER SCAN TODAY WITH ONLY [address] FORMAN ROUNDED ON PT AND IS PLEASED WITH THE IMPROVED APPETITE AND KIDNEY FUNCTION. ADDICTIONS RECOVERY SPECIALIST WORKING ON GETTING A PERIPHERAL LINE IN THE PT SO THAT THE CENTRAL LINE CAN BE DC'ED. 2 SMALL LIQ STOOLS TODAY, DARK IN COLOR. NO OTHER CHANGES IN ASSESSMENT AT THIS TIME. VS REVIEWED. CALL LIGHT IN REACH.
--- NOTE | 2021-02-11 20:21 | NUR ---
DR Pna GI consult in to see PT. Saw loose brown stool . Immodium given for 3rd loose bowel movement. Stool studies neg. Currently on bed fam again for another BM.
--- NOTE | 2021-02-12 02:25 | NUR ---
02/12/21 0210 Right internal jugular triple lumen central line discontinued per protocol. Primary nurse at bedside assisting. Pt tolerated well.
[2021-02-12 05:14] LABS: BASOPHILS ABSOLUTE AUTO 0.02 K/mm3 (0.00-0.23); BASOPHILS PERCENT AUTO 0 % (0-2); Hematocrit 24.6 % (37.0-53.0); LYMPHOCYTES ABSOLUTE AUTO 0.53 K/mm3 (0.84-5.20); LYMPHOCYTES PERCENT AUTO 9 % (21-46); MONOCYTES PERCENT AUTO 12 % (4-13); Mean Corpuscular HGB 31.1 pg (26.0-34.0); Mean Corpuscular HGB Conc 32.5 g/dL (31.5-36.5); Mean Corpuscular Volume 96 fL (80-100); Mean Platelet Volume 10.4 fL (9.1-12.4); RDW Coefficient Variation 14.7 % (11.7-14.2); RDW Standard Deviation 51.2 fL (35.1-46.3); Red Blood Cell Count 2.57 M/mm3 (4.30-5.90); White Blood Cell Count 5.68 K/mm3 (4.00-11.30)
[2021-02-12 05:15] LABS: EOSINOPHILS ABSOLUTE AUTO 0.09 K/mm3 (0.00-0.68); EOSINOPHILS PERCENT AUTO 2 % (0-6); IMMATURE GRAN ABSOLUTE AUTO 0.04 K/mm3 (0.00-0.10); IMMATURE GRAN PERCENT AUTO 1 % (0-1); NEUTROPHILS PERCENT AUTO 76 % (41-73)
[2021-02-12 05:18] LABS: Bun/Creatinine Ratio 21.9 (12.0-20.0); Calcium, Blood 7.5 mg/dL (8.5-10.1); Creatinine, Blood 1.96 mg/dL (0.60-1.20); Potassium, Blood 4.2 mmol/L (3.5-5.5)
--- NOTE | 2021-02-12 15:57 | NUR ---
02/12/21- PER CHART REVIEW WITH DR. HEART, PT IS NOT READY FOR D/C BUT COULD GO POSSIBLY TOMORROW. PT AND OT HAVE BEEN WORKING WITH PT. AND BOTH ARE RECOMMENDING SNF, HOWEVER, PT AND HIS DO NOT WANT THE PT TO GO TO SNF AND WOULD LIKE HIM TO GO HOME. IF THIS IS THE CASE, PT WOULD NEED F/T CAREGIVERS. -KARINA
--- NOTE | 2021-02-12 16:33 | NUR ---
SHIFT SUMMARY PT A&Ox4. COOPERATIVE WITH CARE. PT WORKED WITH PHYSICAL THERAPY TODAY. UP IN CHAIR FOR A FEW HOURS. PT WALKING TO BATHROOM, 1 ASSIST WITH CANE AND GB. PT STATED IT FELT GOOD TO BE UP. PT REPORTED PAIN IN RT SHOULDER x1, MEDICATED PER EMAR. DIARRHEA FREQUENCY DECREASED TODAY. PT'S , IAIN IN FOR VISIT TODAY, UPDATED ON PLAN OF CARE. PT AND REQUESTING DC WITH HH. CURRENT PLAN IS PROBABLE DC TOMORROW. VITALS REVIEWED. PT CURRENTLY RESTING IN BED WITH CALL LIGHT IN REACH. DENIES ANY NEEDS AT THIS TIME.
--- NOTE | 2021-02-13 02:06 | NUR ---
PT with rt total shoulder replacement 01/29/21 at [facility] in [facility] home next day & fell & was septic. Completed antibiotics & has stable vital sighns. PT has pain well controlled on 1 norco 5/325 mg tab x 1 for rt shoulder pain. PT had 3 loose stools on day shift. Immodium given with relief. PT on room air uses CPAP & has bioxx. Working with PT OT PT said yesterday he needs assist with elderly being unable to assist with transfers etc. PT says he would be interested in home health services on [place]. Needs assist with toileting & ambulation. Has been taking full liquid diet tolerating fair.
--- NOTE | 2021-02-13 15:53 | NUR ---
02/13/21- met with pt and . They would like to have pt go to SNF before going home. realizes that she can't provide the physical care needs for the pt at this time, it is beyond her abilities. They would like to go to [facility] and the plan after SNF is for the pt to go home and if he needs help with the transition from SNF to home, to have have Home health come and help them. Explained the referral process and they are agreeable. Will update and pt once hear about referral. -stas
--- NOTE | 2021-02-13 16:32 | NUR ---
SHIFT SUMMARY PT AWAKE DURING SHIFT REPORT. A&O, ABLE TO USE CALL LT APPROPRIATELY. PT CALLED FOR ASSIST TO GO TO BTHRM. 1P ASSIST USING CANE AND GB. PT IS VERY WEAK AND DECONDITIONED. UP TO BTHRM SEVERAL TIMES FOR LOOSE STOOLS TODAY. PT DID FAIRLY WELL MOST TIMES, BUT 3RD TIME PT SAT ON TOILET TOO LONG AND GOT A LITTLE STIFF, NEEDING EXTRA ASSIST TO GET UP. PT ABLE TO WORK WITH PT/OT. BED BTH AND LINEN CHANGE DONE. PT IS CONTINENT AND INCONTINENT OF URINE. PT'S HERE THIS AFTERNOON TO VISIT. [employer] HERE TO TALK WITH BOTH OF THEM. PT AND DECIDED THAT PT WILL GO TO SNF BEFORE GOING HOME. NOT ABLE TO CARE FOR PT SAFELY AT THIS TIME, PT TOO WEAK AND DECONDITIONED. MEDICATED FOR C/O PAIN A COUPLE OF TIMES TODAY. RESTING QUIETLY AT THIS TIME. CALL LT IN REACH. AT BS.
--- NOTE | 2021-02-14 04:05 | NUR ---
SHIFT SUMMARY A/O X3, 1 ASSIST WITH CANE AND GB TO BATHROOM. DENIES PAIN AT THIS TIME. COMPLIANT WITH CPAP T/O NIGHT. EXP WHEEZES TO UPPER LOBES AND CRACKLES IN BASES NOTED. DISCUSSED WITH RT WELL DINING ROOM HOSTESS PROVIDER, NO NEW ORDERS AT THIS TIME. VSS, NO ACUTE CHANGES AT THIS TIME. BED IN LOWEST POSITION WITH CALL LIGHT IN REACH. WILL CONTINUE TO MONITOR AND REPORT TO ONCOMING RN.
[2021-02-14 05:23] LABS: BASOPHILS ABSOLUTE AUTO 0.02 K/mm3 (0.00-0.23); BASOPHILS PERCENT AUTO 1 % (0-2); Hemoglobin 7.5 g/dL (13.5-17.5); LYMPHOCYTES ABSOLUTE AUTO 0.53 K/mm3 (0.84-5.20); LYMPHOCYTES PERCENT AUTO 14 % (21-46); MONOCYTES ABSOLUTE AUTO 0.85 K/mm3 (0.16-1.47); MONOCYTES PERCENT AUTO 22 % (4-13); Mean Corpuscular HGB 31.4 pg (26.0-34.0); Mean Corpuscular HGB Conc 32.6 g/dL (31.5-36.5); Mean Corpuscular Volume 96 fL (80-100); Mean Platelet Volume 9.2 fL (9.1-12.4); Platelet Count 310 K/mm3 (150-400); RDW Coefficient Variation 14.6 % (11.7-14.2); RDW Standard Deviation 51.3 fL (35.1-46.3); Red Blood Cell Count 2.39 M/mm3 (4.30-5.90); White Blood Cell Count 3.87 K/mm3 (4.00-11.30)
[2021-02-14 05:33] LABS: EOSINOPHILS ABSOLUTE AUTO 0.02 K/mm3 (0.00-0.68); EOSINOPHILS PERCENT AUTO 1 % (0-6); IMMATURE GRAN ABSOLUTE AUTO 0.03 K/mm3 (0.00-0.10); IMMATURE GRAN PERCENT AUTO 1 % (0-1); NEUTROPHILS ABSOLUTE AUTO 2.42 K/mm3 (1.96-9.15); NEUTROPHILS PERCENT AUTO 63 % (41-73)
[2021-02-14 05:52] LABS: LDL/HDL RATIO 0.4
[2021-02-14 05:53] LABS: Alanine Aminotransfer (ALT/SGP 14 U/L (12-78); Albumin, Blood 1.9 g/dL (3.4-5.0); Albumin/Globulin Ratio 0.6 (0.8-1.8); Alk Phos 55 U/L (50-136); Anion Gap 5 mmol/L (6-16); Aspartate Aminotrans (AST/SGOT 19 U/L (12-37); Bilirubin, Total 0.4 mg/dL (0.1-1.0); Blood Urea Nitrogen 41 mg/dL (8-24); Bun/Creatinine Ratio 21.8 (12.0-20.0); CHOL/HDL RATIO 1.8; CO2, Blood 28 mmol/L (21-32); Calcium, Blood 7.7 mg/dL (8.5-10.1); Chloride, Blood 100 mmol/L (98-108); Cholesterol 57 mg/dL (50-200); Creatinine, Blood 1.88 mg/dL (0.60-1.20); Globulin, Blood 3.4 g/dL (2.2-4.0); Glomerular Filtration Rate 37 (60-); Glucose, Blood 98 mg/dL (70-99); HDL Cholesterol 31 mg/dL (>39); Low Density Lipoprotein Chol 13 mg/dL (0-110); Potassium, Blood 4.2 mmol/L (3.5-5.5); Sodium, Blood 133 mmol/L (136-145); Total Protein, Blood 5.3 g/dL (6.4-8.2); Triglycerides 64 mg/dL (30-160); Very Low Density Lipoprot Chol 12 mg/dL (6-32)
--- NOTE | 2021-02-14 15:51 | NUR ---
02/14/21- submitted referral to SNF. Being reviewed and will update chart and pt when we hear what their decision is. Received call from Claudia with [facility], discussed her concerns about pt's need for O2. He no longer has the need for O2 and is now on room air. She also stated that pt has had a temp. higher than they are able to accept. She would like to reassess him tomorrow and as long as he doesn't have a temp for 24 hrs, pt could be accepted to their facility tomorrow. Will contact Claudia in the morning with the hope that pt can d/c tomorrow. Notified that pt will need COVID test before he can go. Notified pt of referral and wanting pt to go 24 hrs without fever. -stas
--- NOTE | 2021-02-14 16:43 | NUR ---
SHIFT SUMMARY NO ACUTE CHANGES T/O SHIFT, A&Ox4, CALM AND COOPERATIVE. PT STILL REPORTING SOME ABD DISCOMFORT, ESPECIALLY AFTER ADVANCING DIET. ZOFRAN WAS EFFECTIVE @ THIS TIME. TREATED FOR PAIN X1 R/T R. SHOULDER. IMMOBILIZER REMAINS IN PLACE. 1 BM, LOOSE BUT FORMED MORE THAN PREVIOUS BM'S. LASIX CHANGED TO IV TO PROMOTE MORE FLUID OUTPUT. BLE +2 EDEMA, LUE WEEPING. RUE SWOLLEN WELL. LIKELY NEEDING TO BE PLACE AT A SNF. PT IS CURRENTLY RESTING IN BED WITH CALL LIGHT WITHIN REACH, CALLS APPROPRIATELY. DENIES ANY DISTRESS.
--- NOTE | 2021-02-15 03:40 | NUR ---
SHIFT SUMMARY A/O, ABLE TO MAKE NEEDS KNOWN. COOPERATIVE WITH CARE. CALLS AND ANSWERS QUESTIONS APPROPRIATELY. C/O PAIN/DISCOMFORT TO R SHOULDER/ABDOMEN; MEDICATED PER EMAR. INCONTINENT BM X1; LOOSE IN NATURE. BU/BLE CONTINUE TO BE EDEMATOUS +1-2 WITH WEEPING TO LUE. IMMOBILIZER REMAINS IN PLACE. CPAP @ HS; TOLERANT. NO C/O SOB. RESPIRATIONS EVEN WITH EQUAL RISE/FALL. APPEARED TO REST MUCH OF THE NIGHT. NO OTHER ACUTE CHANGES NOTED. BED REMAINS IN LOWEST POSITION. CALL LIGHT AND BELONGINGS WITHIN REACH. CONTINUE WITH CURRENT PLAN OF CARE. REPORT TO ONCOMING RN.
[2021-02-15 12:26] LABS: Influenza A, PCR NEGATIVE (NEGATIVE); Influenza B, PCR NEGATIVE (NEGATIVE); Resp Syncytial Virus, PCR NEGATIVE (NEGATIVE); SARS-Cov-2 (COVID-19) PCR, MMC NEGATIVE (NEGATIVE)
--- NOTE | 2021-02-15 15:16 | NUR ---
02/15/21- pt is ready to d/c to [facility]. He has been fever free for over 24 hrs. Stopped by pt room and updated him. His is to visit at 2 and he will let her know. -stas
--- NOTE | 2021-02-15 16:26 | NUR ---
REPORT CALLED TO OUMAR BETH @ [facility]. PG REMOVED PRIOR TO DISCHARGED, IV APPEARS WNL. IS TO BRING CPAP TO [facility] THIS EVENING. TOOK A MAJORITY OF THE PT BELONGINGS BESIDES ITEMS HE WISHES TO TAKE TO THE SNF. CURRENTLY WAITING FOR TRANSPORTATION.
[2021-02-15] MEDS ORDERED: TAMS.4ER PO (16:31)
[2021-02-15] MEDS ORDERED: VISBIOME 112.51 EACH PO (16:32)
== END 2021-02-15 16:43 | DRG 871 ==
LOC: ER 21:06 → SURS 01-31 01:25 → ER 01-31 01:53 → PCU 01-31 01:53 → ICUE 02-02 14:39 → MEDS 02-02 14:39 → SURS 02-02 14:39 → ER 02-02 14:39 → SURS 02-03 09:17 → ICUE 02-03 09:17 → MEDS 02-07 15:42 → ENPENDDIS 02-15 11:36 → MEDS 02-15 16:43
PROVIDERS: Emergency Medicine; Family Medicine; Hospitalist; Internal Medicine; Internal Medicine Critical Care Medicine; Internal Medicine Gastroenterology; ADMIT Student in an Organized Health Care Education/Training Program
PROC: 5A1D70Z Performance of Urinary Filtration, Intermittent, Less than 6 Hours Per Day (ICD-10-PCS; principal; 2021-02-03)
PROC: 3E043XZ Introduction of Vasopressor into Central Vein, Percutaneous Approach (ICD-10-PCS; 2021-02-03)
PROC: 0JH63XZ Insertion of Tunneled Vascular Access Device into Chest Subcutaneous Tissue and Fascia, Percutaneous Approach (ICD-10-PCS; 2021-02-03)
PROC: 02HV33Z Insertion of Infusion Device into Superior Vena Cava, Percutaneous Approach (ICD-10-PCS; 2021-02-03)
PROC: 30233N1 Transfusion of Nonautologous Red Blood Cells into Peripheral Vein, Percutaneous Approach (ICD-10-PCS; 2021-02-05)
DX: A41.9 Sepsis, unspecified organism (principal); G93.41 Metabolic encephalopathy; N17.0 Acute kidney failure with tubular necrosis; R65.21 Severe sepsis with septic shock; J96.01 Acute respiratory failure with hypoxia; I48.20 Chronic atrial fibrillation, unspecified; E87.2 Acidosis; D62 Acute posthemorrhagic anemia; J90 Pleural effusion, not elsewhere classified; J98.11 Atelectasis; Z20.822 Contact with and (suspected) exposure to COVID-19; R74.01 Elevation of levels of liver transaminase levels; E87.6 Hypokalemia; E83.51 Hypocalcemia; K74.3 Primary biliary cirrhosis; K52.9 Noninfective gastroenteritis and colitis, unspecified; J45.909 Unspecified asthma, uncomplicated; E78.5 Hyperlipidemia, unspecified; E83.39 Other disorders of phosphorus metabolism; J44.9 Chronic obstructive pulmonary disease, unspecified; D63.1 Anemia in chronic kidney disease; N40.1 Benign prostatic hyperplasia with lower urinary tract symptoms; M10.9 Gout, unspecified; R33.8 Other retention of urine; K74.5 Biliary cirrhosis, unspecified; G47.33 Obstructive sleep apnea (adult) (pediatric); K21.9 Gastro-esophageal reflux disease without esophagitis; I12.9 Hypertensive chronic kidney disease with stage 1 through stage 4 chronic kidney disease, or unspecified chronic kidney disease; N18.30 Chronic kidney disease, stage 3 unspecified; Z88.8 Allergy status to other drugs, medicaments and biological substances; Z79.899 Other long term (current) drug therapy; Z96.653 Presence of artificial knee joint, bilateral; Z96.611 Presence of right artificial shoulder joint; Z79.01 Long term (current) use of anticoagulants; Z90.49 Acquired absence of other specified parts of digestive tract; Z98.890 Other specified postprocedural states; Z87.891 Personal history of nicotine dependence; Z89.421 Acquired absence of other right toe(s); Z87.442 Personal history of urinary calculi; Z87.01 Personal history of pneumonia (recurrent)
CPT/HCPCS: 0097U; 0241U; 36415; 36430; 36556; 36600; 51702; 71045; 74176; 76700; 76770; 80048; 80053; 80061; 80069; 80074; 81001; 82140; 82330; 82533; 82550; 82803; 83605; 83690; 83735; 84100; 85025; 86140; 86317; 86850; 86900; 86901; 86923; 87040; 87493; 93005; 93010; 94640; 94660; 94667; 94760; 94762; 96372-59; 96374; 96375; 97110; 97112; 97116; 97162; 97166; 97530; 97535; 99285-25; A9270; C1751; C1752; J0290; J0500; J0780; J1940; J1956; J2405; J2543; J2550; J3010; J3480; J7030; J7040; J7050; J7060; J7070; J7120; P9016; P9046

== ENCOUNTER 2021-03-12 13:36 | Emergency (ER) | payer MEDICARE ==
[~2021-03-12] VITALS: Ht 177.8 cm; Wt 99.8 kg
[~2021-03-12 13:36] MED LIST changes: +TAMS.4ER PO; +VISBIOME 112.51 EACH PO
[2021-03-12 14:36] LABS: BASOPHILS ABSOLUTE AUTO 0.04 K/mm3 (0.00-0.23); BASOPHILS PERCENT AUTO 1 % (0-2); EOSINOPHILS ABSOLUTE AUTO 0.31 K/mm3 (0.00-0.68); EOSINOPHILS PERCENT AUTO 5 % (0-6); Hematocrit 24.1 % (37.0-53.0); Hemoglobin 7.7 g/dL (13.5-17.5); IMMATURE GRAN ABSOLUTE AUTO 0.07 K/mm3 (0.00-0.10); IMMATURE GRAN PERCENT AUTO 1 % (0-1); LYMPHOCYTES ABSOLUTE AUTO 0.62 K/mm3 (0.84-5.20); LYMPHOCYTES PERCENT AUTO 10 % (21-46); MONOCYTES ABSOLUTE AUTO 0.76 K/mm3 (0.16-1.47); MONOCYTES PERCENT AUTO 12 % (4-13); Mean Corpuscular HGB 30.2 pg (26.0-34.0); Mean Corpuscular Volume 95 fL (80-100); Mean Platelet Volume 8.8 fL (9.1-12.4); NEUTROPHILS ABSOLUTE AUTO 4.65 K/mm3 (1.96-9.15); NEUTROPHILS PERCENT AUTO 72 % (41-73); NRBC ABSOLUTE 0.02 K/mm3 (0.00-0.02); NRBC Auto 0.3 /100 WBC (0.0-0.2); Platelet Count 423 K/mm3 (150-400); RDW Coefficient Variation 16.1 % (11.7-14.2); RDW Standard Deviation 55.9 fL (35.1-46.3); Red Blood Cell Count 2.55 M/mm3 (4.30-5.90); White Blood Cell Count 6.45 K/mm3 (4.00-11.30)
[2021-03-12 15:06] LABS: Albumin, Blood 2.3 g/dL (3.4-5.0); Albumin/Globulin Ratio 0.6 (0.8-1.8); Bilirubin, Total 0.3 mg/dL (0.1-1.0); Calcium, Blood 8.7 mg/dL (8.5-10.1); Creatinine, Blood 1.53 mg/dL (0.60-1.20); Globulin, Blood 3.8 g/dL (2.2-4.0); Potassium, Blood 4.4 mmol/L (3.5-5.5); Total Protein, Blood 6.1 g/dL (6.4-8.2)
== END 2021-03-12 17:17 | disposition left against medical advice (07) ==
LOC: ER 13:36
PROVIDERS: Physician Assistant
DX: R19.7 Diarrhea, unspecified (principal); Z53.21 Procedure and treatment not carried out due to patient leaving prior to being seen by health care provider; Z79.01 Long term (current) use of anticoagulants; Z79.899 Other long term (current) drug therapy
CPT/HCPCS: 36415; 80053; 85025; 99283

== ENCOUNTER → 2021-04-25 | Outpatient (CLI) | payer MEDICARE ==
[2021-04-26 09:16] LABS: C DIFFICILE DNA NEGATIVE (Negative)
== END | disposition home or self-care (01) ==
LOC: LAB SHORT 15:11 → LAB 15:11
PROVIDERS: Student in an Organized Health Care Education/Training Program
DX: K52.9 Noninfective gastroenteritis and colitis, unspecified (principal)
CPT/HCPCS: 87493

== ENCOUNTER 2021-05-10 11:09 | Day surgery (SDC) | payer MEDICARE ==
[~2021-05-10] VITALS: Ht 177.8 cm; Wt 92.5 kg
== END 2021-05-10 13:03 | disposition home or self-care (01) ==
LOC: ORSCSDS 11:09
PROVIDERS: Internal Medicine Gastroenterology
PROC: 0DB58ZX Excision of Esophagus, Via Natural or Artificial Opening Endoscopic, Diagnostic (ICD-10-PCS; principal; 2021-05-10 12:30)
DX: K22.70 Barrett's esophagus without dysplasia (principal); K74.60 Unspecified cirrhosis of liver; G47.33 Obstructive sleep apnea (adult) (pediatric); K44.9 Diaphragmatic hernia without obstruction or gangrene; N18.30 Chronic kidney disease, stage 3 unspecified; E66.9 Obesity, unspecified; K21.9 Gastro-esophageal reflux disease without esophagitis; J44.9 Chronic obstructive pulmonary disease, unspecified; I48.91 Unspecified atrial fibrillation; Z87.891 Personal history of nicotine dependence; Z68.33 Body mass index [BMI] 33.0-33.9, adult; Z79.899 Other long term (current) drug therapy
CPT/HCPCS: 88305; J2001; J2704; J7120

== ENCOUNTER → 2022-01-20 | Outpatient (CLI) | payer MEDICARE ==
[2022-01-20 15:33] LABS: BASOPHILS ABSOLUTE AUTO 0.05 K/mm3 (0.00-0.23); BASOPHILS PERCENT AUTO 1 % (0-2); EOSINOPHILS ABSOLUTE AUTO 0.28 K/mm3 (0.00-0.68); EOSINOPHILS PERCENT AUTO 3 % (0-6); Hematocrit 36.1 % (37.0-53.0); Hemoglobin 11.7 g/dL (13.5-17.5); IMMATURE GRAN ABSOLUTE AUTO 0.06 K/mm3 (0.00-0.10); IMMATURE GRAN PERCENT AUTO 1 % (0-1); LYMPHOCYTES PERCENT AUTO 10 % (21-46); MONOCYTES ABSOLUTE AUTO 0.88 K/mm3 (0.16-1.47); MONOCYTES PERCENT AUTO 10 % (4-13); Mean Corpuscular HGB Conc 32.4 g/dL (31.5-36.5); Mean Corpuscular Volume 96 fL (80-100); Mean Platelet Volume 9.5 fL (9.1-12.4); NEUTROPHILS ABSOLUTE AUTO 6.87 K/mm3 (1.96-9.15); NEUTROPHILS PERCENT AUTO 76 % (41-73); Platelet Count 184 K/mm3 (150-400); RDW Coefficient Variation 15.7 % (11.7-14.2); RDW Standard Deviation 54.7 fL (35.1-46.3); Red Blood Cell Count 3.78 M/mm3 (4.30-5.90); White Blood Cell Count 9.04 K/mm3 (4.00-11.30)
[2022-01-20 15:49] LABS: Albumin, Blood 3.1 g/dL (3.4-5.0); Albumin/Globulin Ratio 0.9 (0.8-1.8); Bilirubin, Total 0.3 mg/dL (0.1-1.0); Bun/Creatinine Ratio 21.4 (12.0-20.0); Creatinine, Blood 1.68 mg/dL (0.60-1.20); Globulin, Blood 3.6 g/dL (2.2-4.0); Potassium, Blood 4.3 mmol/L (3.5-5.5); Thyroid Stimulating Hormone 0.967 uIU/mL (0.360-4.800); Total Protein, Blood 6.7 g/dL (6.4-8.2)
== END ==
LOC: LAB SHORT 15:25
PROVIDERS: Physician Assistant
DX: R42 Dizziness and giddiness (principal); R53.83 Other fatigue
CPT/HCPCS: 80053; 84443; 85025

== ENCOUNTER 2022-08-26 18:29 | Observation (INO) | payer MEDICARE ==
[~2022-08-26] VITALS: Ht 177.8 cm; Wt 99.8 kg
[2022-08-27 00:48] LABS: BASOPHILS ABSOLUTE AUTO 0.04 K/mm3 (0.00-0.23); BASOPHILS PERCENT AUTO 1 % (0-2); EOSINOPHILS ABSOLUTE AUTO 0.22 K/mm3 (0.00-0.68); EOSINOPHILS PERCENT AUTO 3 % (0-6); IMMATURE GRAN ABSOLUTE AUTO 0.02 K/mm3 (0.00-0.10); IMMATURE GRAN PERCENT AUTO 0 % (0-1); LYMPHOCYTES ABSOLUTE AUTO 1.16 K/mm3 (0.84-5.20); LYMPHOCYTES PERCENT AUTO 15 % (21-46); MONOCYTES ABSOLUTE AUTO 0.73 K/mm3 (0.16-1.47); MONOCYTES PERCENT AUTO 9 % (4-13); Mean Corpuscular HGB 30.5 pg (26.0-34.0); Mean Corpuscular HGB Conc 32.4 g/dL (31.5-36.5); Mean Corpuscular Volume 94 fL (80-100); Mean Platelet Volume 9.4 fL (9.1-12.4); NEUTROPHILS ABSOLUTE AUTO 5.64 K/mm3 (1.96-9.15); NEUTROPHILS PERCENT AUTO 72 % (41-73); Platelet Count 250 K/mm3 (150-400); RDW Standard Deviation 52.4 fL (35.1-46.3); Red Blood Cell Count 3.94 M/mm3 (4.30-5.90); White Blood Cell Count 7.81 K/mm3 (4.00-11.30)
[2022-08-27 01:07] LABS: Albumin, Blood 3.2 g/dL (3.4-5.0); Albumin/Globulin Ratio 0.9 (0.8-1.8); Bilirubin, Total 0.2 mg/dL (0.1-1.0); Bun/Creatinine Ratio 26.6 (12.0-20.0); Calcium, Blood 8.7 mg/dL (8.5-10.1); Creatinine, Blood 1.24 mg/dL (0.60-1.20); Globulin, Blood 3.7 g/dL (2.2-4.0); Potassium, Blood 4.2 mmol/L (3.5-5.5); Total Protein, Blood 6.9 g/dL (6.4-8.2)
--- NOTE | 2022-08-27 03:13 | NUR ---
PT ARRIVED TO FLOOR, ASSESSMENT COMPLETE. VITALS WDL. ONLY CONCERN IS PAIN MOSTLY IN L HIP. NEW ORDER FOR OXYCODONE AND ADMINISTERED. PT BEDREST, USING URINAL. NPO, PT AWARE. SKIN ASSESSMENT COMPLETE WITH 2ND RN. R ELBOW SKIN TEAR DRESSED WITH NONADHERENT PAD, R LEG SCABS, GENERAL BRUISING. EDUCATED ON PLAN OF CARE. ABLE TO USE CALL LIGHT. WILL CONTINUE TO MONITOR.
--- NOTE | 2022-08-27 19:05 | NUR ---
SHIFT SUMMARY- PT WAS ADMITTED LAST NIGHT AFTER A GROUND LEVEL FALL. PT STATED HE SLIPPED ON A HOSE/CORD AND FELL. PT HAS HAD MODERATE TO SEVERE PAIN T/O THE DAY MEDICATED WITH OXY PRN. ALL IMAGES COMPLETED ORDERED, PLAN IS FOR POSSIBLE DC TOMORROW WITH HOME HEALTH. PT ALERT AND ORIENTED. DR BARRON OK'D PT TO USE HOME PAIN CREAM BIO FREEZE. PASSED ALL ON TO NIGHT RN IN BEDSIDE REPORT. PT IN BED, CALL LIGHT IN REACH, NO S&S OF DISTRESS. PT DID REQUEST PAIN MEDS AT THE TIME OF SHIFT CHANGE.
--- NOTE | 2022-08-28 04:49 | NUR ---
GOGGLES ASSEMBLER SUMMARY: A&Ox4. PLEASANT AND COOPERATIVE WITH CARE. CALLS APPROPRIATELY AND COMMUNICATES NEEDS EFFECTIVELY. MEDICATED x2 C/O LEFT HIP PAIN R/T GLF. NO ACUTE CONCERNS T/O THE NIGHT. ANTICIPATING DC HOME WITH HOME HEALTH TODAY. STOOLING AND VOIDING WITHOUT DIFFICULTY. WILL REPORT TO ONCOMING RN.
--- NOTE | 2022-08-28 19:33 | NUR ---
SHIFT SUMMARY- PT HAS A HEATING PAD THAT WAS PLACED UNDER HIS LEFT THIGH, PT STATES IT HAS HELPED ALOT WITH THE PAIN. PT REQUESTED PAIN MEDICATION AT SHIFT CHANGE, NIGHT RN AWARE AND WILL ADMINISTER. PT WAS ABLE TO GET UP AND WALK TO THE BATHROOM WITH THERAPY AND HAD A FULL SHOWER TODAY. PT CURRENTLY LAYING IN BED, CALL LIGHT IN REACH NO S&S OF DISTRESS.
--- NOTE | 2022-08-29 07:21 | NUR ---
TMH TEACHER SUMMARY: A&Ox4. PLEASANT AND COOPERATIVE WITH CARE. CALLS APPROPRIATELY AND COMMUNICATES NEEDS. REQUESTING PAIN MEDS q4h FOR HIP PAIN. VSS. VOIDING AND STOOLING WITHOUT DIFFICULTY. NO ACUTE CONCERNS T/O THE NIGHT ANTICIPATES DCING HOME TODAY OR TOMORROW. WILL REPORT TO ONCOMING RN.
[2022-08-29] MEDS ORDERED: TRAM50 PO (11:18)
--- NOTE | 2022-08-29 14:00 | NUR ---
DISCHARGE NOTE: PT EDUCATED ON FOLLOWING UP WITH PCP WITHIN 1 WEEK, TAKE MEDICATIONS PRESCRIBED. PT HAD NO IV ACCESS. PT REQUIRED ASSISTANCE WITH DRESSING AND PACKING PERSONAL BELONGINGS. PT ESCORTED TO LOBBY BY FILI PADILLA, PT TRANSPORTED HOME BY FAMILY. PT DISCHARGED AT 1400.
== END 2022-08-29 14:42 | disposition home health service (06) ==
LOC: ER 18:29 → MEDS 08-27 02:11
PROVIDERS: Emergency Medicine; ADMIT Internal Medicine
DX: M25.552 Pain in left hip (principal); I48.91 Unspecified atrial fibrillation; J44.9 Chronic obstructive pulmonary disease, unspecified; I10 Essential (primary) hypertension; E78.5 Hyperlipidemia, unspecified; N18.30 Chronic kidney disease, stage 3 unspecified; Z87.891 Personal history of nicotine dependence; I12.9 Hypertensive chronic kidney disease with stage 1 through stage 4 chronic kidney disease, or unspecified chronic kidney disease; Z79.01 Long term (current) use of anticoagulants
CPT/HCPCS: 70450; 73502; 73552; 73700; 80053; 85025; 93005; 93010; 94640; 94664; 94760; 97110; 97116; 97116-CQ; 97161; 97165; 97530; 97530-CQ; 97535; 99285-25; A9270; G0378; J2405; J3010

== ENCOUNTER 2022-10-28 08:30 | Inpatient (IN) | payer MEDICARE ==
[~2022-10-28] VITALS: Ht 177.8 cm; Wt 98.1 kg
[~2022-10-28 08:30] MED LIST changes: +ALLO100 PO; +BUDESONIDE EC3 M1 PO; +TOPI25 PO; +ZYRTEC10 M2 PO
--- NOTE | 2022-10-28 10:18 | NUR ---
Ambulatory in Day Surgery. History, Chart, Medications and Allergies reviewed before start of procedure. Patient confirms NPO status and agrees with scheduled surgery. Pre-Op teaching done. Pt verbalizes understanding.
--- NOTE | 2022-10-28 19:44 | NUR ---
SHIFT SUMMARY PATIENT NEW ADMIT TO UNIT POD 0 LEFT REVERSE TOTAL SHOULDER WITH DR CALVERT. ALERT AND ORIENTED. RESTING IN BED. TOLERATED REGULAR DIET AND LIQUIDS. VOIDING WITH URINAL. LEFT SHOULDER WITH AQUACEL C/D/I. ABLE TO MOVE FINGERS, WRIST AND REPORTS FULL SENSATION. DENIES PAIN. POST OP VSS. SPOKE WITH PATIENT'S SPOUSE AND GAVE UPDATE. REPORT GIVEN TO TOWER HOIST OPERATOR RN.
[2022-10-29 04:28] LABS: BASOPHILS ABSOLUTE AUTO 0.01 K/mm3 (0.00-0.23); BASOPHILS PERCENT AUTO 0 % (0-2); EOSINOPHILS PERCENT AUTO 0 % (0-6); Hemoglobin 10.9 g/dL (13.5-17.5); IMMATURE GRAN ABSOLUTE AUTO 0.06 K/mm3 (0.00-0.10); IMMATURE GRAN PERCENT AUTO 1 % (0-1); LYMPHOCYTES ABSOLUTE AUTO 0.42 K/mm3 (0.84-5.20); LYMPHOCYTES PERCENT AUTO 3 % (21-46); MONOCYTES ABSOLUTE AUTO 0.87 K/mm3 (0.16-1.47); MONOCYTES PERCENT AUTO 7 % (4-13); Mean Corpuscular HGB 31.1 pg (26.0-34.0); Mean Corpuscular Volume 94 fL (80-100); Mean Platelet Volume 9.3 fL (9.1-12.4); NEUTROPHILS ABSOLUTE AUTO 11.72 K/mm3 (1.96-9.15); NEUTROPHILS PERCENT AUTO 90 % (41-73); Platelet Count 171 K/mm3 (150-400); RDW Standard Deviation 52.3 fL (35.1-46.3); Red Blood Cell Count 3.51 M/mm3 (4.30-5.90); White Blood Cell Count 13.08 K/mm3 (4.00-11.30)
[2022-10-29 04:58] LABS: Bun/Creatinine Ratio 21.8 (12.0-20.0); Calcium, Blood 8.6 mg/dL (8.5-10.1); Creatinine, Blood 1.47 mg/dL (0.60-1.20); Potassium, Blood 4.8 mmol/L (3.5-5.5)
--- NOTE | 2022-10-29 06:46 | NUR ---
ASSEMBLY OPERATOR SUMMARY POD 0 FOR L TOTAL SHOULDER. AQUACEL DRESSING C/D/I TO L SHOULDER. L ARM IN SLING. PT REPORTS SOME NUMBNESS TO SHOULDER AT START OF SHIFT BUT NOW HAS FULL SENSATION AFTER SPINAL WORE OFF. MEDICATED FOR PAIN WITH OXY 10 MG WITH GOOD PAIN RELIEF. PT STANDBY ASSIST TO BATHROOM AND HAS VOIDED MULITPLE TIMES TONIGHT. WILL CONTINUE TO MONITOR.
[2022-10-29] MEDS ORDERED: Percocet 5-3251 EACH PO (09:21)
--- NOTE | 2022-10-29 10:47 | NUR ---
DISCHARGE CLEARED PT & OT, EATING, DRINKING, VOIDING. PAIN WELL CONTROLLED. SCRIPT, POLAR PACK & DRSGS SENT. ESCORTED OUT VIA WC
== END 2022-10-29 10:47 | disposition home or self-care (01) | DRG 483 ==
LOC: SURS 08:30 → PRE IP 09:15 → SURS 15:52
PROVIDERS: ADMIT Orthopaedic Surgery
PROC: 0RRK00Z Replacement of Left Shoulder Joint with Reverse Ball and Socket Synthetic Substitute, Open Approach (ICD-10-PCS; principal; 2022-10-28 12:00)
DX: M12.812 Other specific arthropathies, not elsewhere classified, left shoulder (principal); J45.909 Unspecified asthma, uncomplicated; N18.9 Chronic kidney disease, unspecified; I12.9 Hypertensive chronic kidney disease with stage 1 through stage 4 chronic kidney disease, or unspecified chronic kidney disease; E78.5 Hyperlipidemia, unspecified; I48.91 Unspecified atrial fibrillation; G47.33 Obstructive sleep apnea (adult) (pediatric); Z96.653 Presence of artificial knee joint, bilateral; Z96.611 Presence of right artificial shoulder joint; Z88.8 Allergy status to other drugs, medicaments and biological substances; Z79.899 Other long term (current) drug therapy; Z79.01 Long term (current) use of anticoagulants
CPT/HCPCS: 36415; 73030; 80048; 85025; 94640; 94664; 94760; 97110; 97112; 97161; 97165; 97530; A9270; C1713; C1776; J0171; J0690; J0735; J1100; J1885; J2250; J2370; J2405; J2704; J2795; J3010; J3370; J7120

== ENCOUNTER → 2023-03-18 | Outpatient (CLI) | payer MEDICARE | END | disposition home or self-care (01) | LOC: LAB SHORT 12:30 → LAB 12:30 | DX: J45.909 Unspecified asthma, uncomplicated (principal) | CPT/HCPCS: 87070; 87205 ==

== ENCOUNTER → 2023-10-28 | Outpatient (CLI) | payer MEDICARE | LOC: LAB SHORT 15:30 → LAB 15:30 → LAB SHORT 10-29 16:57 | DX: L60.2 Onychogryphosis (principal); B35.1 Tinea unguium | CPT/HCPCS: 87210; 87220 ==

== ENCOUNTER → 2024-04-29 | Outpatient (CLI) | payer MEDICARE ==
[2024-04-29 14:08] LABS: BASOPHILS ABSOLUTE AUTO 0.03 K/mm3 (0.00-0.23); BASOPHILS PERCENT AUTO 1 % (0-2); EOSINOPHILS ABSOLUTE AUTO 0.12 K/mm3 (0.00-0.68); EOSINOPHILS PERCENT AUTO 2 % (0-6); Hematocrit 42.1 % (37.0-53.0); Hemoglobin 14.1 g/dL (13.5-17.5); IMMATURE GRAN ABSOLUTE AUTO 0.02 K/mm3 (0.00-0.10); IMMATURE GRAN PERCENT AUTO 0 % (0-1); LYMPHOCYTES ABSOLUTE AUTO 1.03 K/mm3 (0.84-5.20); LYMPHOCYTES PERCENT AUTO 19 % (21-46); MONOCYTES ABSOLUTE AUTO 0.54 K/mm3 (0.16-1.47); MONOCYTES PERCENT AUTO 10 % (4-13); Mean Corpuscular HGB Conc 33.5 g/dL (31.5-36.5); Mean Corpuscular Volume 96 fL (80-100); Mean Platelet Volume 10.5 fL (9.1-12.4); NEUTROPHILS ABSOLUTE AUTO 3.59 K/mm3 (1.96-9.15); NEUTROPHILS PERCENT AUTO 67 % (41-73); Platelet Count 186 K/mm3 (150-400); RDW Coefficient Variation 14.3 % (11.7-14.2); RDW Standard Deviation 50.9 fL (35.1-46.3); White Blood Cell Count 5.33 K/mm3 (4.00-11.30)
[2024-04-29 14:22] LABS: Albumin, Blood 3.3 g/dL (3.4-5.0); Albumin/Globulin Ratio 0.8 (0.8-1.8); Bilirubin, Total 0.2 mg/dL (0.1-1.0); Bun/Creatinine Ratio 30.8 (12.0-20.0); Calcium, Blood 8.6 mg/dL (8.5-10.1); Creatinine, Blood 2.08 mg/dL (0.60-1.20); Globulin, Blood 4.2 g/dL (2.2-4.0); Potassium, Blood 4.7 mmol/L (3.5-5.5); Total Protein, Blood 7.5 g/dL (6.4-8.2)
== END | disposition home or self-care (01) ==
LOC: LAB SHORT 12:00 → LAB 12:00
PROVIDERS: Physician Assistant
DX: R10.9 Unspecified abdominal pain (principal)
CPT/HCPCS: 80053; 85025

== ENCOUNTER → 2024-05-24 | Outpatient (CLI) | payer MEDICARE ==
[~2024-05-24] MED LIST changes: +PRAMIPEXOLE0.125 M1
[2024-05-28 09:56] LABS: 6-ACETYLMORPHINE, URN, QUANT <10 ng/mL; CODEINE, URN, QUANT <20 ng/mL; HYDROCODONE, URN, QUANT <20 ng/mL; HYDROMORPHONE, URN, QUANT <20 ng/mL; MORPHINE, URN, QUANT <20 ng/mL; NORHYDROCODONE, URN, QUANT <20 ng/mL; NOROXYCODONE, URN, QUANT <20 ng/mL; NOROXYMORPHONE, URN, QUANT <20 ng/mL; OXYCODONE, URN, QUANT <20 ng/mL; OXYMORPHONE, URN, QUANT <20 ng/mL
== END ==
LOC: LAB 15:52 → LAB SHORT 15:52
PROVIDERS: Family Medicine
DX: Z51.81 Encounter for therapeutic drug level monitoring (principal); Z79.899 Other long term (current) drug therapy
CPT/HCPCS: G0480

== ENCOUNTER → 2024-06-04 | Outpatient (CLI) | payer MEDICARE ==
[2024-06-04 16:08] LABS: BASOPHILS ABSOLUTE AUTO 0.04 K/mm3 (0.00-0.23); BASOPHILS PERCENT AUTO 1 % (0-2); EOSINOPHILS PERCENT AUTO 5 % (0-6); Hematocrit 38.4 % (37.0-53.0); Hemoglobin 12.6 g/dL (13.5-17.5); IMMATURE GRAN ABSOLUTE AUTO 0.03 K/mm3 (0.00-0.10); IMMATURE GRAN PERCENT AUTO 0 % (0-1); LYMPHOCYTES PERCENT AUTO 9 % (21-46); MONOCYTES ABSOLUTE AUTO 0.46 K/mm3 (0.16-1.47); MONOCYTES PERCENT AUTO 7 % (4-13); Mean Corpuscular HGB 31.4 pg (26.0-34.0); Mean Corpuscular HGB Conc 32.8 g/dL (31.5-36.5); Mean Corpuscular Volume 96 fL (80-100); Mean Platelet Volume 10.2 fL (9.1-12.4); NEUTROPHILS ABSOLUTE AUTO 5.28 K/mm3 (1.96-9.15); NEUTROPHILS PERCENT AUTO 79 % (41-73); Platelet Count 173 K/mm3 (150-400); RDW Coefficient Variation 14.7 % (11.7-14.2); RDW Standard Deviation 52.2 fL (35.1-46.3); Red Blood Cell Count 4.01 M/mm3 (4.30-5.90); White Blood Cell Count 6.71 K/mm3 (4.00-11.30)
[2024-06-04 16:12] LABS: Albumin, Blood 3.1 g/dL (3.4-5.0); Albumin/Globulin Ratio 0.9 (0.8-1.8); Bilirubin, Total 0.3 mg/dL (0.1-1.0); Bun/Creatinine Ratio 29.9 (12.0-20.0); Creatinine, Blood 1.47 mg/dL (0.60-1.20); Globulin, Blood 3.6 g/dL (2.2-4.0); Potassium, Blood 5.1 mmol/L (3.5-5.5); Total Protein, Blood 6.7 g/dL (6.4-8.2)
== END | disposition home or self-care (01) ==
LOC: LAB 15:46 → LAB SHORT 15:46
PROVIDERS: Physician Assistant
DX: R06.00 Dyspnea, unspecified (principal)
CPT/HCPCS: 80053; 84484; 85025; 85379

== ENCOUNTER → 2025-09-08 | Outpatient (CLI) | payer MEDICARE ==
[2025-09-08 11:05] LABS: BASOPHILS ABSOLUTE AUTO 0.03 K/mm3 (0.00-0.23); BASOPHILS PERCENT AUTO 1 % (0-2); EOSINOPHILS ABSOLUTE AUTO 0.29 K/mm3 (0.00-0.68); EOSINOPHILS PERCENT AUTO 6 % (0-6); Hematocrit 39.2 % (37.0-53.0); Hemoglobin 13.4 g/dL (13.5-17.5); IMMATURE GRAN ABSOLUTE AUTO 0.04 K/mm3 (0.00-0.10); IMMATURE GRAN PERCENT AUTO 1 % (0-1); LYMPHOCYTES ABSOLUTE AUTO 0.89 K/mm3 (0.84-5.20); LYMPHOCYTES PERCENT AUTO 17 % (21-46); MONOCYTES ABSOLUTE AUTO 0.56 K/mm3 (0.16-1.47); MONOCYTES PERCENT AUTO 11 % (4-13); Mean Corpuscular HGB Conc 34.2 g/dL (31.5-36.5); Mean Corpuscular Volume 95 fL (80-100); NEUTROPHILS ABSOLUTE AUTO 3.48 K/mm3 (1.96-9.15); NEUTROPHILS PERCENT AUTO 66 % (41-73); NRBC ABSOLUTE 0.00 K/mm3 (0.00-0.02); NRBC Auto 0.0 /100 WBC (0.0-0.2); Platelet Count 161 K/mm3 (150-400); RDW Coefficient Variation 15.0 % (11.7-14.2); RDW Standard Deviation 52.2 fL (35.1-46.3)
[2025-09-08 11:17] LABS: Alanine Aminotransfer (ALT/SGP 73.0 U/L (12-78); Albumin, Blood 3.0 g/dL (3.4-5.0); Albumin/Globulin Ratio 0.8 (0.8-1.8); Anion Gap 14.0 mmol/L (6-16); Aspartate Aminotrans (AST/SGOT 43.0 U/L (12-37); Bilirubin, Total 0.4 mg/dL (0.1-1.0); Blood Urea Nitrogen 29.0 mg/dL (8-24); CO2, Blood 25.0 mmol/L (21-32); Calcium, Blood 8.9 mg/dL (8.5-10.1); Chloride, Blood 108.0 mmol/L (98-108); Creatinine, Blood 1.82 mg/dL (0.60-1.20); Globulin, Blood 3.7 g/dL (2.2-4.0); Glucose, Blood 96.0 mg/dL (70-99); Potassium, Blood 4.9 mmol/L (3.5-5.5); Sodium, Blood 142.0 mmol/L (136-145); Total Protein, Blood 6.7 g/dL (6.4-8.2)
== END ==
LOC: LAB SHORT 11:02 → LAB 11:02
PROVIDERS: Family Medicine
DX: L29.9 Pruritus, unspecified (principal)
CPT/HCPCS: 80053; 85025